=== PATIENT | male | born 1955 | race Caucasian/White ===

== ENCOUNTER 2023-11-25 18:39 | Emergency (ER) | payer OTHER, SELFPAY ==
--- NOTE | ~2023-11-25 | XR_ITS ---
XR chest 2V Ordering provider: Kolby Wise MD History: 68 years Male with . anterior chest pain . Comparison: October 05, 2010 FINDINGS: MEDIASTINUM: The cardiac silhouette is not enlarged. Postoperative changes in the mediastinum. LUNGS: No infiltrates, effusions or pneumothorax. OTHER: No free air under the diaphragm. Degenerative changes of the spine. IMPRESSION: No acute cardiopulmonary pathology. Reviewed, dictated and finalized at location A.
--- NOTE | ~2023-11-25 | CT_ITS ---
CTA chest PE protocol Ordering provider: Wendy Farris PA-C History: 68 years Male with . cough, sob, +dimer, influenza A . Comparison: None. Technique: CT angiogram chest was performed following timed intravenous injection of contrast. Thin s lice axial images and reformatted coronal images were obtained. Three dimensional reformatted images of the chest were also obtained using a [employer] workstation. . Automated exposure control and iterati ve reconstruction technique were employed. The dose-length product was 831.35 mGy-cm. 100 mL Omnipaqu e 350 was given IV. Findings: PULMONARY ARTERIES: No pulmonary embolus. VISUALIZED THORACIC INLET: Normal. MEDIASTINUM: Aorta/coronary arteries: Mild atheromatous disease. Heart/other: The heart is not enlarged. Lymph nodes: No mediastinal or hilar adenopathy. Postoperative changes in the mediastinum. LUNGS: No pulmonary nodules or masses. No infiltrates or effusions. No pneumothorax. VISUALIZED UPPER ABDOMEN: Sliding hiatus hernia. Otherwise, the visualized upper abdomen is normal. MUSCULOSKELETAL: Soft tissues: The superficial soft tissues are normal. Bones: Age appropriate degenerative changes of the spine. IMPRESSION: 1. No pulmonary embolism. 2. No acute cardiopulmonary pathology. 3. Small sliding hiatus hernia. Reviewed, dictated and finalized at location A.
[2023-11-25 18:41] VITALS: BP 133/70; PULSE 79; RESP 16; TEMP 38.3; O2SAT 95
--- NOTE | 2023-11-25 18:46 | ECG_ITS ---
Test Date: 2023-11-25 18:50:39 Measurements Intervals [place] Rate: 73 P: 23 [place]: 132 QRS: -29 QRSD: 103 T: 50 QT: 380 QTc: 420 Interpretive Statements SINUS RHYTHM INCOMPLETE RIGHT BUNDLE BRANCH BLOCK NONSPECIFIC ST-T WAVE ABNORMALITY- INF/LAT LEADS BASELINE ARTIFACT- I, II, III, AVR, AVL, AVF, V1-V2 BORDERLINE ECG No previous ECG available for comparison Electronically Signed On 11-25-2023 19:21:57 CDT by Jake Gay D.O.
[2023-11-25 19:09] LABS: Basophils Percent Auto 0.1 % (0.2-1.2); Eosinophils Percent Auto 0.3 % (0-4.4); Hematocrit 44.1 % (42.0-52.0); Hemoglobin 15.1 g/dL (14.0-18.0); Immature Granulocyte Absolute 0.04 K/mm3 (0.00-0.031); Immature Granulocyte Percent A 0.5 % (0-0.5); Lymphocytes Absolute Auto 1.24 K/mm3 (0.9-3.2); Lymphocytes Percent Auto 16.3 % (18.3-44.2); Mean Corpuscular HGB Conc 34.2 g/dl (32-36); Mean Corpuscular Hemoglobin 31.5 pg (26-34); Mean Corpuscular Volume 92.1 fl (80-100); Mean Platelet Volume 9.2 fl (7.4-10.4); Monocytes Absolute Auto 0.9 K/mm3 (0.1-0.6); Neutrophils Absolute Auto 5.4 K/mm3 (1.3-6.7); Neutrophils Percent Auto 70.8 % (45.5-73.1); Platelet Count Result 160 k/mm3 (150-375); Red Blood Count 4.79 M/mm3 (4.6-6.20); Red Cell Distribution Width 14.4 % (11.5-14.5); White Blood Count 7.6 K/mm3 (4.5-10.0)
[2023-11-25 19:20] LABS: INR 1.1; Prothrombin Time 14.2 Seconds (11.1-14.7)
[2023-11-25 19:21] LABS: Alanine Aminotransferase 29 U/L (6-50); Albumin Level 4.4 g/dL (3.5-5.1); Alkaline Phosphatase 91 U/L (38-126); Anion Gap 13 mmol/L (4-12); Aspartate Amino Transferase 38 U/L (17-59); Bilirubin,Total 0.8 mg/dL (0.2-1.3); Blood Urea Nitrogen 17 mg/dL (9-20); Calcium 8.6 mg/dL (8.4-10.2); Carbon Dioxide 20 mmol/L (22-30); Chloride 100 mmol/L (98-107); Estimated CRCL calculation 83 ml/min; Estimated Glomerular Filt Rate > 60; Glucose 103 mg/dL (65-110); Lipase 285 U/L (23-300); Partial Thromboplastin Time 33.1 Seconds (22.3-36.8); Potassium 3.5 mmol/L (3.4-5.0); Sodium 133 mmol/L (137-145)
[2023-11-25 19:33] LABS: Troponin I < 0.012 ng/mL (0.000-0.034)
[2023-11-25 22:26] VITALS: PULSE 66; RESP 15; O2SAT 96
[2023-11-25 22:28] VITALS: BP 118/78; PULSE 68; RESP 15; O2SAT 96
[2023-11-25 22:45] VITALS: BP 130/85; PULSE 60; RESP 10; TEMP 37.9; O2SAT 95
--- NOTE | 2023-11-25 22:47 | ED.CHESTPAIN ---
HPI - Chest Pain General Chief Complaint: Chest Pain Stated Complaint: chest pain Time Seen by Provider: 11/25/23 21:56 Source: patient Mode of arrival: ambulatory Limitations: no limitations History of Present Illness HPI narrative: Patient is a 68-year-old male, with PMH of CAD s/p triple bypass, who presents the ED with report of multiple complaints. Patient reports he has not felt well since Thursday. He developed chest pain sometime throughout the night on Thursday which has been intermittent since then. No aggravating factors. He is prescribed nitroglycerin and took 1 of these on Thursday. He also reports having weakness, fatigue, lethargy, cough, congestion, rhinorrhea, intermittent shortness of breath, chills, headaches. Denies known fever. Denies sick contacts. Denies lower extremity pain or swelling. Patient sees a adjuster piano action yearly with [facility]. Related Data Allergies Allergy/AdvReac Type Severity Reaction Status Date / Time codeine Allergy Verified 10/05/10 21:12 Review of Systems Review of Systems: All systems reviewed & are unremarkable except as noted in HPI. All systems reviewed & are unremarkable except as noted in HPI and below Exam Narrative: GENERAL: Mildly ill appearing, obese with BMI of 34.8, non-toxic, in no acute distress. HEAD: Normocephalic, atraumatic. RESPIRATORY: Airway patent, respirations nonlabored with occasional pursed lip breathing. Clear to auscultation bilaterally, no rales, rhonchi, wheezing. No significant focal lung sounds. CARDIOVASCULAR: Regular rate and rhythm without murmurs, rubs, or gallops. ABDOMINAL: Soft, nontender, nondistended. Normoactive BS. MUSCULOSKELETAL: Moves all extremities. No gross deformities. No lower extremity edema. No calf tenderness. SKIN: Warm, dry, normal color. NEURO: A&O X3. Speech clear. Cranial nerves II-XII grossly intact. Steady gait. No ataxic movements. PSYCHIATRIC: Appropriate mood and affect. Normal interaction. Course Vital Signs Vital signs: Vital Signs Temperature 100.9 F H 11/25/23 18:41 Pulse Rate 79 11/25/23 18:41 Respiratory Rate 16 11/25/23 18:41 Blood Pressure 133/70 11/25/23 18:41 Pulse Oximetry 95 11/25/23 18:41 Oxygen Delivery Room Air 11/25/23 18:41 Temperature 100.2 F H 11/25/23 22:45 Pulse Rate 52 L 11/26/23 01:58 Respiratory Rate 16 11/26/23 01:58 Blood Pressure 142/90 H 11/26/23 01:58 Pulse Oximetry 97 11/26/23 01:58 Oxygen Delivery Room Air 11/25/23 18:41 MDM - Chest Pain MDM Narrative Medical decision making narrative: Patient presented to ED with several day history of URI sx's, intermittent chest pain, cough, fatigue, weakness. Vital signs are stable upon arrival. Patient was noted to be febrile upon arrival and by the time of my evaluation. Given Tylenol in the ED. EKG is with nonspecific ST changes, no acute ST elevation or depression, right bundle-branch block. No records to compare to. Baseline troponin is undetectable. Chest x-ray is clear. BNP within normal limits. Cbc without leukocytosis or anemia. CMP fairly unremarkable. Possible mild dehydration with bicarb of 20, anion gap of 13. Patient given fluids in the ED. Normal LFTs and lipase. Influenza A testing resulted positive. This is consistent with clinical picture and reported symptoms. Patient has not been vaccinated for the flu. D-dimer resulted mildly elevated at 0.69. CTA of chest was obtained and without evidence of PE or other acute cardiopulmonary abnormality. Patient was updated on lab and imaging findings, diagnosis of influenza, otherwise reassuring workup. He was ambulated throughout the ED without hypoxia noted. Troponin has been flat X 3. Slight change but < 0.003 interval change. Patient has had ongoing pain since Thursday. Denies any current pain. I have low suspicion for ACS. Suspect musculoskeletal etiology related to Influenza. Discussed this with patient and advised to have clos
[2023-11-25 23:11] LABS: D Dimer 0.69 ug/mL (<0.48)
[2023-11-25 23:14] LABS: Influenza A QL RT-PCR Positive (Negative); Influenza B QL RT-PCR Negative (Negative); RSV RNA, RT-PCR Negative (Negative); SARS-CoV-2 RNA PCR Negative (Negative)
[2023-11-25] MEDS: ACETAMINOPHEN 500 MG TABLET 1000 MG PO (23:26)
[2023-11-25] MEDS: SODIUM CHLORIDE 0.9% IV 1,000 ML 999 ML IV CONT (23:27)
[2023-11-25 23:41] LABS: NT Pro B Type Natriuretic Pept 126 pg/mL (19.9-100)
[2023-11-25 23:45] LABS: Troponin I 0.012 ng/mL (0.000-0.034)
[2023-11-26 00:30] VITALS: PULSE 76
[2023-11-26 01:25] LABS: Troponin I 0.014 ng/mL (0.000-0.034)
[2023-11-26 01:58] VITALS: BP 142/90; PULSE 52; RESP 16; O2SAT 97
== END 2023-11-26 01:59 | disposition home or self-care (01) ==
PROVIDERS: Emergency Medicine; Emergency Provider Physician Assistant; PCP Family Medicine
DX: J10.1 Influenza due to other identified influenza virus with other respiratory manifestations (principal); I25.10 Atherosclerotic heart disease of native coronary artery without angina pectoris; Z20.822 Contact with and (suspected) exposure to COVID-19
CPT/HCPCS: 36415; 71046; 71275; 80053; 83690; 83880; 84484; 85025; 85380; 85610; 85730; 87637; 93005; 96360; 99284; A9270; J7030; Q9967

== ENCOUNTER 2024-03-08 12:51 | Emergency (ER) | payer OTHER, SELFPAY ==
--- NOTE | ~2024-03-08 | CT_ITS ---
CLINICAL INDICATION: Left lower quadrant pain COMPARISON: 10/05/2010 TECHNIQUE: Multiple contiguous axial images of the abdomen and pelvis were performed following the ad ministration of with 100 mL Omnipaque-350 intravenous contrast The dose-length product (DLP) was 1269.89 mGy-cm. Automated exposure control and iterative reconstruction technique were employed. FINDINGS/OBSERVATIONS: Visualized lower thorax: Trace left-sided pleural effusion. The heart is of normal size, without pericardial effusion. Liver: The liver enhances homogeneously and is not enlarged. Gallbladder and biliary system: The gallbladder is surgically absent. Pancreas: The pancreas enhances homogeneously without ductal dilatation. Spleen: The spleen enhances homogeneously and is not enlarged. Kidneys: Left-sided hydronephrosis extending to the proximal left ureter where a 4.8 mm stone is identified. Significant perinephric stranding is detected. Global enlargement of the left kidney is identified. Multiple subcentimeter foci of decreased attenuation within the bilateral kidneys, too small to qasim cterize but statistically representing cysts. A 3 mm nonobstructing stone is identified within the upper pole of the right kidney. Adrenal glands: Unremarkable. Gastrointestinal tract: Colonic diverticulosis without surrounding inflammatory change. The rectum is distended with stool. Appendix: The appendix is not definitively visualized. However, no pericecal inflammatory change is identified suggest the presence of acute appendicitis. Vasculature: Calcified atherosclerotic disease. No aneurysmal dilatation or significant stenosis. Lymph nodes: No pathologically enlarged or morphologically suspicious lymph nodes within the retroperitoneum or at the root of the mesentery. Pelvic structures: The bladder is only minimally distended, and otherwise unremarkable. The prostate gland is not enlarged. Body wall and musculoskeletal: Small fat-containing umbilical hernia. Significant degenerative disease within the lumbosacral spine, with osteophyte formation, disc space narrowing, endplate changes and vacuum phenomena. Facet hypertrophy is also noted, as is grade 1 anterolisthesis of L4 onto L5. IMPRESSION: Left-sided hydronephrosis secondary to a 5 mm stone within the proximal left ureter. Reviewed, dictated and finalized at location A. ATIONS COORDINATOR IMPRESSION: Left-sided hydronephrosis secondary to a 5 mm stone within the proximal left ur eter.
[2024-03-08 12:52] VITALS: BP 173/114; PULSE 57; RESP 16; TEMP 36.4; O2SAT 96
--- NOTE | 2024-03-08 13:13 | ED_ITS ---
HPI - Abdominal Pain General Chief Complaint: Abdominal Pain Stated Complaint: lower left abd pain Time Seen by Provider: 03/08/24 13:03 Source: patient Mode of arrival: ambulatory Limitations: no limitations History of Present Illness HPI narrative: This is a 69-year-old male who presents to the ED for chief complaint of left lower abdominal pain that started this morning after waking up. Patient reports pain radiates superiorly at times. No specific exacerbating or alleviating factors. He does report a normal bowel movement this morning. States that he has been nauseous and had 1 episode of vomiting after trying to drink water this morning. Denies diarrhea or GI bleeding symptoms. States that he has not had pain like this in the past. He has been told that he has diverticulosis from previous colonoscopy. Related Data Allergies Allergy/AdvReac Type Severity Reaction Status Date / Time codeine Allergy Unknown Verified 03/08/24 13:33 morphine Allergy Other Verified 03/08/24 13:33 Review of Systems 2 Review of Systems: All systems as dictated in HPI Exam 2 Narrative: GENERAL: Well-appearing, well-nourished, and in no acute distress. HEAD: Normocephalic, atraumatic. EYES: PERRLA and EOMI. ENT: Nares clear, no rhinorrhea or epistaxis. Mucous membranes moist. Oropharynx without tonsillar hypertrophy exudate or other lesions. NECK: Supple. No adenopathy or masses. CHEST: No respiratory distress. Clear to auscultation. No wheezes rales or rhonchi HEART: Regular rate and rhythm. No murmur heard. Normal peripheral pulses. ABDOMEN: Focal tenderness to the left lower quadrant. Otherwise nontender, nondistended, normal active bowel sounds. Negative flank tenderness bilaterally. MSK: Normal range of motion. No edema. SKIN: Warm, dry, no rash. NEURO: Alert and oriented x4. No focal deficits. PSYCH: Normal mood and affect. Course Vital Signs Vital signs: Vital Signs Temperature 97.6 F 03/08/24 12:52 Pulse Rate 57 L 03/08/24 12:52 Respiratory Rate 16 03/08/24 12:52 Blood Pressure 173/114 H 03/08/24 12:52 Pulse Oximetry 96 03/08/24 12:52 Oxygen Delivery Room Air 03/08/24 12:52 Temperature 97.6 F 03/08/24 12:52 Pulse Rate 57 L 03/08/24 12:52 Respiratory Rate 16 03/08/24 12:52 Blood Pressure 173/114 H 03/08/24 12:52 Pulse Oximetry 96 03/08/24 12:52 Oxygen Delivery Room Air 03/08/24 12:52 MDM - Abdominal Pain MDM Narrative Medical decision making narrative: This is a 69-year-old male who presents to the ED for chief complaint of left- sided abdominal pain beginning earlier today. Vitals show elevated blood pressure but otherwise normal. Exam remarkable for the above. Lab work shows elevated white count of 15.8. CMP is unremarkable. Urinalysis remarkable for trace ketones and 21-[address] abdomen and pelvis with contrast: IMPRESSION: Left-sided hydronephrosis secondary to a 5 mm stone within the proximal left ureter. Feel that the white count is most likely due to acute phase reaction with vomiting today,/acute process with nephrolithiasis. No fever or evidence of UTI to indicate associated infection with this stone today. He is feeling better after Toradol. Rx for Zofran, Flomax, tramadol given. Urology referral given as well. Patient will be discharged in stable condition. Supportive measures discussed and return precautions given. Patient is understanding and agreeable with plan for discharge with PCP follow-up. Lab Data 03/08/24 13:36 03/08/24 13:36 Labs: Lab Results 03/08/24 03/08/24 Range/Units 13:36 13:49 WBC 15.8 H (4.5-10.0) K/mm3 RBC 5.08 (4.6-6.20) M/mm3 Hgb 15.9 (14.0-18.0) g/dL Hct 46.5 (42.0-52.0) % MCV 91.5 (80-100) fl MCH 31.3 (26-34) pg MCHC 34.2 (32-36) g/dl RDW 13.5 (11.5-14.5) % Plt Count 233 (150-375) k/mm3 MPV 8.9 (7.4-10.4) fl Immature Gran % (Auto) 0.6 H (0-0.5) % Neut % (Auto) 86.3 H (45.5-73.1) % Lymph % (Auto) 7.2 L (18.3-44.2) % [place] % (Auto) 5.5 (2.6-8.5) % Eos % (Auto) 0.0 (0-4.4) % Baso % (Auto) 0.4 (0.2-1.2) % Lymph # (Auto) 1.14 (0.9-3.2) K/mm3 [place] # (Auto) 0.9 H (0.1-0.6) K/mm3 Eos # (Auto) 0.0 (0-0.3) K/mm3 Baso # (Auto) 0.1 (0.0-0.1) K/mm3 Abs Immat Gran (auto) 0.09 H (0.00-0.031) K/mm3 Absolute Neuts (auto) 13.6 H (1.3-6.7) K/mm3 Absolute Nucleated RBC 0.000 (0.0-0.012) K/mm3 Nucleated RBC % 0.0 (0.0-0.2) % Sodium 137 (137-145) mmol/L Potassium 4.0 (3.4-5.0) mmol/L Chloride 108 H (98-107) mmol/L Carbon Dioxide 23 (22-30) mmol/L Anion Gap 6 (4-12) mmol/L BUN 17 (9-20) mg/dL Creatinine 0.80 (0.7-1.3) mg/dL Estim Creat Clear Calc 89 ml/min Estimated GFR > 60 (59 - ) Glucose 126 H (65-110) mg/dL Calcium 9.3 (8.4-10.2) mg/dL Total Bilirubin 1.0 (0.2-1.3) mg/dL AST 24 (17-59) U/L ALT 20 (6-50) U/L Alkaline Phosphatase 94 (38-126) U/L Total Protein 8.0 (6.3-8.2) g/dL Albumin 4.5 (3.5-5.1) g/dL Lipase 55 (23-300) U/L Urine Color Yellow (Yellow) Urine Appearance Clear (Clear) Urine pH 7.5 (5.0-9.0) Ur Specific [place] 1.014 (1.001-1.035) Urine Protein 1+ H (Negative) mg/dL Urine Glucose (UA) Trace H (Negative) mg/dL Urine Ketones Trace H (Negative) mg/dL Ur Blood (Man) 1+ H (Negative) Urine Nitrate Negative (Negative) Urine Bilirubin Negative (Negative) Urine Urobilinogen 0.2 (<2.0) mg/dL Leukocyte Esterase Rfl Negative (Negative) KIT/UL Urine RBC 21-50 H (0-2) /hpf Urine WBC 0-5 (0-3) /hpf Ur Squamous Epith Cells None seen (Few) /hpf Urine Bacteria None seen /hpf Urine Casts 0-2 Imaging Data Radiologist's impression: ITS Impressions Abdomen/Pelvis CT 03/08/24 14:16 IMPRESSION: Left-sided hydronephrosis secondary to a 5 mm stone within the proximal left ureter. Discharge Plan Discharge Clinical Impression: Left ureteral stone Patient Disposition: Home, Self-Care Condition: Stable Instructions: Antibiotic Form Additional Instructions: Exam and imaging today show 5 mm kidney stone on the left side. Please follow- up with urology closely on this issue. Take ibuprofen 600 mg every 6 hours as needed for pain control. You could also take Tylenol for pain and fevers. Please take Zofran as needed for nausea. Continue taking your Flomax as prescribed. A new prescription has been sent in case you need this. Tramadol has been prescribed for breakthrough pain. Return to the ER for uncontrollable pain, vomiting or any fevers. Patient Language: Cymraes Prescriptions: New tamsulosin [Flomax] 0.4 mg capsule 0.4 mg PO DAILY Qty: 10 0RF ondansetron 4 mg tablet,disintegrating 4 mg PO Q8H PRN (Reason: nausea and vomiting) Qty: 10 0RF tramadol 25 mg tablet 25 mg PO QID PRN (Reason: pain) Qty: 14 0RF No Action benzonatate 200 mg capsule 200 mg PO TID PRN (Reason: cough) Qty: 15 0RF ondansetron 4 mg tablet,disintegrating 4 mg PO Q8H PRN (Reason: nausea and vomiting) Qty: 10 0RF Follow-up/Referrals: Salma,Osman Walters MD [Non-Staff] - Peter Hays MD [Physician] - Time of Disposition: 15:00
[2024-03-08] MEDS: SODIUM CHLORIDE 0.9% IV 1,000 ML 999 ML IV CONT (13:34)
[2024-03-08] MEDS: ONDANSETRON INJ 4 MG/2 ML VIAL IV PUSH (13:34)
[2024-03-08 13:42] LABS: Basophils Absolute Auto 0.1 K/mm3 (0.0-0.1); Basophils Percent Auto 0.4 % (0.2-1.2); Hematocrit 46.5 % (42.0-52.0); Hemoglobin 15.9 g/dL (14.0-18.0); Immature Granulocyte Absolute 0.09 K/mm3 (0.00-0.031); Immature Granulocyte Percent A 0.6 % (0-0.5); Lymphocytes Absolute Auto 1.14 K/mm3 (0.9-3.2); Lymphocytes Percent Auto 7.2 % (18.3-44.2); Mean Corpuscular HGB Conc 34.2 g/dl (32-36); Mean Corpuscular Hemoglobin 31.3 pg (26-34); Mean Corpuscular Volume 91.5 fl (80-100); Mean Platelet Volume 8.9 fl (7.4-10.4); Monocytes Absolute Auto 0.9 K/mm3 (0.1-0.6); Monocytes Percent Auto 5.5 % (2.6-8.5); Neutrophils Absolute Auto 13.6 K/mm3 (1.3-6.7); Neutrophils Percent Auto 86.3 % (45.5-73.1); Platelet Count Result 233 k/mm3 (150-375); Red Blood Count 5.08 M/mm3 (4.6-6.20); Red Cell Distribution Width 13.5 % (11.5-14.5); White Blood Count 15.8 K/mm3 (4.5-10.0)
[2024-03-08] MEDS: KETOROLAC 30 MG/ML VIAL (*BKC) 15 MG IV PUSH (13:46)
[2024-03-08 13:54] LABS: Alanine Aminotransferase 20 U/L (6-50); Albumin Level 4.5 g/dL (3.5-5.1); Alkaline Phosphatase 94 U/L (38-126); Anion Gap 6 mmol/L (4-12); Aspartate Amino Transferase 24 U/L (17-59); Blood Urea Nitrogen 17 mg/dL (9-20); Calcium 9.3 mg/dL (8.4-10.2); Carbon Dioxide 23 mmol/L (22-30); Chloride 108 mmol/L (98-107); Estimated CRCL calculation 89 ml/min; Estimated Glomerular Filt Rate > 60; Glucose 126 mg/dL (65-110); Lipase 55 U/L (23-300); Sodium 137 mmol/L (137-145)
[2024-03-08 14:01] LABS: Add Urine Microscopic? YES; Appearance Urine Clear (Clear); Bacteria Urine None Seen /hpf; Bilirubin Urine Negative (Negative); Blood Urine 1+ (Negative); Color Urine Yellow (Yellow); Glucose Urine UA Trace mg/dL (Negative); Ketones Urine Trace mg/dL (Negative); Leukocyte Esterase Ur Negative LEU/UL (Negative); Nitrate Urine Negative (Negative); Non Pathogenic Casts 0-2; Protein Urine 1+ mg/dL (Negative); RBC Urine 21-50 /hpf (0-2); Specific Grav Ur 1.014 (1.001-1.035); Squamous Epithelial Cell Urine None Seen /hpf (Few); Urobilinogen Urine 0.2 mg/dL (<2.0); WBC Urine 0-5 /hpf (0-3); pH Urine 7.5 (5.0-9.0)
--- OUTSIDE RECORDS SUMMARY | 2024-03-16 00:11 | XMS_ITS | Encounter Summary ---
Author Organization [facility] Address [address] [place] [address] Phone Care Team Providers Care Agricultural Chemist Name Role Phone Dave Mchugh MD Unavailable [phone] Yulisa Gray NP Unavailable Osman Marsh MD Primary Care Provider [phone] Pedro Cedeno MD Unavailable [phone] Encounter Details Date Type Department Care Team (Late st Contact Info) Description 04/30/2022 Telephone [facility] Cardiology [address]th [place] [address] [place] [address] Dave Mchugh MD [address] [place] [address] Social History Tobacco Use Types Packs/Day Years Used Date Smoking Tobacco: Former Cigarettes 2.3 54.7 0 03/16/1967 - 12/14/2021 Smokeless Tobacco: Never Comments: Started smoking at 12-13 years old Quit smoking at 2013 for 5 years and then restarted when his got sick in Alcohol Use Standard Drinks/Week Comments Not Currently 0 (1 standard drink = 0.6 oz pur e alcohol) AUDIT-C Answer Date Recorded Q1: How often do you have a drink containing alc ohol? Monthly or less 04/21/2022 Q2: How many drinks containi ng alcohol do you have on a typical day when you are drinking? 1 or 2 04/21/2022 Q3: How often do you have si x or more drinks on one occasion? 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 Gender Identity Not on file Sexual Orientation Straight 04/21/2022 12 :23 PM FOOD ORDER DELIVERY RUNNER Occupation Industry Job Start Date Job End Date Retired Not on file Not on file Not on file documented as of this encounter Ordered Prescriptions Prescription Sig Dispense Quantity Refills Last Filled Start Date End Date isosorbide mononitrate ER (IMDUR) 30 mg 24 hr tabletIndications: prevention of anginal pain in coronary artery disease Take 1 tablet (30 mg total) by mouth every morning 90 tablet 2 05/02/2022 4 lisinopriL (PRINIVIL,ZESTRIL) 5 mg tabletIndications: hypertension Take 1 tablet (5 mg total) by mouth every morning 90 tablet 2 05/02/2022 4 amLODIPine (NORVASC) 2.5 mg tabletIndications: hypertension Take 1 tablet (2.5 mg total) by mouth every morning 90 tablet 2 05/02/2022 4 documented in this encounter Miscellaneous Notes * Addendum Note - Joslny Downs - 05/02/2022 8:21 AM CSTAddended by: JOSLYN DOWNS on: 05/02/2022 08:21 AM Modules accepted: Orders ORDER DELIVERY RUNNER * Addendum Note - Joslyn Downs - 05/01/2022 4:34 PM CSTAddended by: JOSLYN DOWNS on: 05/01/2022 04:34 PM Modules accepted: Orders ORDER DELIVERY RUNNER * Telephone Encounter - Lauren Lima - 04/30/2022 3:00 PM CST Images from the original note were not included. See 3 RX request ORDER DELIVERY RUNNER documented in this encounter Plan of Treatment Not on file documented as of this encounter Goals Goal Patient Goal Type Associated Problems Recent Progress Patient-Stated? Author CCM Chronic Pain Care Plan Chronic Care Management Rita Kamara, RN Note: Problem: Chronic Pain Goals: 1. Minimize further functional decline 2. Maximize quality of life 3. Control pain Strategies: - Activity/exercise program recommendation - Conservative stepwise pain medicine strategy with multi-disciplinary approach - Recommend healthy lifestyle strategies and compensatory methods as needed documented as of this encounter Visit Diagnoses Not on filedocumented in this encounter Discontinued Medications Medication Sig Discontinue Reason Start Date End Da te amLODIPine (NORVASC) 2.5 mg tablet Take 1 tablet (2.5 mg total) by mouth daily Reorder 01/29/2022 05/01/2022 isosorbide mononitrate ER (IMDUR) 30 mg 24 hr tablet Take 1 tablet (30 mg total) by mouth daily Reorder 01/29/2022 05/02/2022 lisinopriL (PRINIVIL,ZESTRIL) 5 mg tablet Take 1 tablet (5 mg total) by mouth daily Reorder 01/29/2022 05/01/2022 documented as of this encounter Care Teams Agricultural Chemist Relationship Specialty Start Date End Date Osman Marsh MD [address] [address] PCP - General Family Medicine 04/28/22 Dave Mchugh MD Referring Physician Cardiology 03/18/22 Yulisa Gray NP Nurse Practitioner Family Medicine 03/21/22 Pedro Cedeno MD [address] [facility] [address] [place] [address] Consulting Physician Orthopedic Surgery 04/30/22 documented as of this encounter
== END 2024-03-08 15:20 | disposition home or self-care (01) ==
PROVIDERS: Emergency Provider Physician Assistant; PCP Family Medicine
DX: N20.1 Calculus of ureter (principal)
CPT/HCPCS: 36415; 74177; 80053; 81001; 83690; 85025; 96361; 96374; 96375; 99284; J1885; J2405; J7030; Q9967

== ENCOUNTER 2024-04-13 10:56 | Emergency (ER) | payer OTHER, SELFPAY ==
--- NOTE | ~2024-04-13 | CT_ITS ---
EXAMINATION: CT abdomen pelvis wo con DATE: 04/13/2024 13:53 INDICATION: Concern for left kidney stone TECHNIQUE: Computed tomography (CT) of the abdomen and pelvis was performed without intravenous contr ast. Automated exposure control and iterative reconstruction technique were employed. The dose-length product was 549.09 mGy-cm. COMPARISON: 03/08/2024 FINDINGS: There are scattered discoid atelectasis in the bilateral lower lungs. Heart size is normal. Atheroscl erotic coronary artery calcifications. No pericardial or pleural effusion. Cholecystectomy clips the gallbladder fossa. Liver, spleen, pancreas and bilateral adrenal glands are normal. There are couple nonobstructing right renal stones, the larger measuring 4 mm at the lower pole the right kidney. 5 x 3 mm obstructing stone at the proximal left ureter with mild left hydronephrosis and moderate left pe rinephric stranding. Bladder is normal. There is diffuse severe colonic diverticulosis without adjace nt inflammatory change to suggest diverticulitis. Small bowel and appendix are normal. No free intra peritoneal gas or fluid. No pathologically enlarged abdominal or pelvic lymphadenopathy. Moderate to severe lumbar and mild to moderate lower thoracic spondylosis. Chronic mild likely physiologic anteri or wedging at T11 and T12. IMPRESSION: 1. Obstructing 5 mm proximal left ureteral stone with mild left hydronephrosis and moderate perinephr ic stranding. 2. Extensive diverticulosis. Reviewed, dictated and finalized at location B. RINARY ASSISTANT IMPRESSION: 1. Obstructing 5 mm proximal left ureteral stone with mild left hydronephrosis and moderate perinephric stranding. 2. Extensive diverticulosis.
--- NOTE | ~2024-04-13 | XR_ITS ---
EXAMINATION: XR chest 2V 04/13/2024 12:45 INDICATION: Chest pain PROCEDURE: 2 view chest COMPARISON: 11/25/2023 FINDINGS: Status post median sternotomy for CABG. Bibasilar atelectasis. No focal pneumonia, edema ef fusion. No pneumothorax. Heart size normal.Chronic deformity of the right clavicle. Surgical changes right humeral head. Mild thoracic spondylosis with accentuated kyphosis. IMPRESSION: 1: Bibasilar atelectasis. Reviewed, dictated and finalized at location A. MACHINE OPERATOR IMPRESSION: 1: Bibasilar atelectasis.
--- NOTE | 2024-04-13 10:58 | ECG_ITS ---
Test Date: 2024-04-13 11:05:34 Measurements Intervals [place] Rate: 66 P: 19 ID: [id number] QRS: -11 QRSD: 122 T: -1 QT: 436 QTc: 459 Interpretive Statements SINUS RHYTHM WITH FREQUENT VENTRICULAR PREMATURE COMPLEXES MODERATE INTRAVENTRICULAR CONDUCTION DELAY [110+ ms QRS DURATION] ABNORMAL RHYTHM ECG Compared to ECG 11/25/2023 18:50:39 Ventricular premature complex(es) now present Electronically Signed On 04-13-2024 16:07:21 JUNIOR QA ANALYST by Derek Shirley M.D.
--- NOTE | 2024-04-13 11:12 | ECG_ITS ---
Test Date: 2024-04-13 11:10:06 Measurements Intervals [place] Rate: 55 P: 21 IN: 157 QRS: -17 QRSD: 116 T: -11 QT: 462 QTc: 446 Interpretive Statements SINUS BRADYCARDIA MODERATE INTRAVENTRICULAR CONDUCTION DELAY [110+ ms QRS DURATION] Compared to ECG 04/13/2024 11:05:34 Ventricular premature complex(es) no longer present Electronically Signed On 04-13-2024 16:07:44 CONSTRUCTION MATERIALS TESTER by Derek Shirley M.D.
[2024-04-13 11:28] VITALS: BP 180/85; PULSE 54; RESP 20; TEMP 36.9; O2SAT 95
[2024-04-13 11:32] LABS: Basophils Absolute Auto 0.1 K/mm3 (0.0-0.1); Basophils Percent Auto 0.6 % (0.2-1.2); Eosinophils Absolute Auto 0.1 K/mm3 (0-0.3); Eosinophils Percent Auto 0.8 % (0-4.4); Hematocrit 45.7 % (42.0-52.0); Hemoglobin 15.9 g/dL (14.0-18.0); Immature Granulocyte Absolute 0.06 K/mm3 (0.00-0.031); Immature Granulocyte Percent A 0.5 % (0-0.5); Lymphocytes Absolute Auto 1.69 K/mm3 (0.9-3.2); Lymphocytes Percent Auto 13.3 % (18.3-44.2); Mean Corpuscular HGB Conc 34.8 g/dl (32-36); Mean Corpuscular Hemoglobin 31.9 pg (26-34); Mean Corpuscular Volume 91.8 fl (80-100); Mean Platelet Volume 8.9 fl (7.4-10.4); Monocytes Percent Auto 7.6 % (2.6-8.5); Neutrophils Absolute Auto 9.8 K/mm3 (1.3-6.7); Neutrophils Percent Auto 77.2 % (45.5-73.1); Platelet Count Result 235 k/mm3 (150-375); Red Blood Count 4.98 M/mm3 (4.6-6.20); Red Cell Distribution Width 13.1 % (11.5-14.5); White Blood Count 12.7 K/mm3 (4.5-10.0)
[2024-04-13 11:42] LABS: Alanine Aminotransferase 16 U/L (6-50); Albumin Level 4.5 g/dL (3.5-5.1); Alkaline Phosphatase 87 U/L (38-126); Anion Gap 14 mmol/L (4-12); Aspartate Amino Transferase 20 U/L (17-59); Bilirubin,Total 0.9 mg/dL (0.2-1.3); Blood Urea Nitrogen 22 mg/dL (9-20); Calcium 8.9 mg/dL (8.4-10.2); Carbon Dioxide 19 mmol/L (22-30); Chloride 106 mmol/L (98-107); Estimated CRCL calculation 80 ml/min; Estimated Glomerular Filt Rate > 60; Glucose 137 mg/dL (65-110); Lipase 106 U/L (23-300); Sodium 139 mmol/L (137-145)
[2024-04-13 11:52] LABS: Prothrombin Time 13.6 Seconds (11.1-14.7)
[2024-04-13 11:53] LABS: Partial Thromboplastin Time 25.8 Seconds (22.3-36.8); Troponin I < 0.012 ng/mL (0.000-0.034)
--- NOTE | 2024-04-13 13:41 | ED.CHESTPAIN ---
HPI - Chest Pain General Chief Complaint: Chest Pain <Rehana Mcknight PA-C - Last Filed: 04/13/24 13:42> Stated Complaint: kidney stone <Rehana Mcknight PA-C - Last Filed: 04/13/24 13:42> Time Seen by Provider: 04/13/24 16:42 <Rehana Mcknight PA-C - Last Filed: 04/13/24 13:42> Focused HPI: 69-year-old male with a history of CAD, CABG several years ago, kidney stones presents to the emergency department for chest pain concerns for kidney stones. Patient states today around 8:00 a.m. he began having pain in the left side of his abdomen which is normally what happens when he gets a kidney stone. Denies flank pain. Reports associated nausea and emesis. States he has not urinated today but when he urinated last night he had no hematuria or dysuria. States earlier today while he was rolling around in pain from the kidney stone he began having pain to the left side of his chest. States it is stabbing in nature. No aggravating or alleviating factors. No fevers. GENERAL: Well-appearing, well-nourished, and in no acute distress. HEAD: Normocephalic, atraumatic. CHEST: Clear to auscultation. ?No respiratory distress. ABD: Tenderness of the left upper quadrant no rebound, guarding rigidity. No CVA tenderness HEART: Regular rate and rhythm.? NEURO: ?Alert and oriented x3. Patient screened in triage and initial orders placed.? ?Additional care and disposition to be based upon?diagnostic testing and treatment. <Rehana Mcknight PA-C - Last Filed: 04/13/24 13:42> Related Data Allergies/Adverse Reactions: Allergies Allergy/AdvReac Type Severity Reaction Status Date / Time codeine Allergy Unknown Verified 03/08/24 13:33 morphine Allergy Other Verified 03/08/24 13:33 <Rehana Mcknight PA-C - Last Filed: 04/13/24 13:42> Exam Narrative: APPEARANCE: No apparent distress. Head: atraumatic. EYES: EOMI, NOSE: Atraumatic NECK: Trachea midline RESPIRATORY: No increased rate of breathing clear to auscultation CARDIOVASCULAR: RRR, soft nontender no guarding rebound ABDOMINAL: Non-distended no CVA tenderness MUSCULOSKELETAl: No obvious deformities NEURO: Alert. Moving 4/4 extremities SKIN:: Warm, dry. Normal color PSYCHIATRIC: Normal affect <Ricardo Waters MD - Last Filed: 04/13/24 18:35> Course Vital Signs Vital signs: Vital Signs Temperature 98.5 F 04/13/24 11:28 Pulse Rate 54 L 04/13/24 11:28 Respiratory Rate 20 04/13/24 11:28 Blood Pressure 180/85 H 04/13/24 11:28 Pulse Oximetry 95 04/13/24 11:28 Oxygen Delivery Room Air 04/13/24 11:28 Temperature 98.5 F 04/13/24 11:28 Pulse Rate 73 04/13/24 16:08 Respiratory Rate 20 04/13/24 11:28 Blood Pressure 112/86 04/13/24 16:06 Pulse Oximetry 95 04/13/24 16:06 Oxygen Delivery Room Air 04/13/24 16:05 <Rehana Mcknight PA-C - Last Filed: 04/13/24 13:42> Vital Signs Temperature 98.5 F 04/13/24 11:28 Pulse Rate 54 L 04/13/24 11:28 Respiratory Rate 20 04/13/24 11:28 Blood Pressure 180/85 H 04/13/24 11:28 Pulse Oximetry 95 04/13/24 11:28 Oxygen Delivery Room Air 04/13/24 11:28 Temperature 98.5 F 04/13/24 11:28 Pulse Rate 73 04/13/24 16:08 Respiratory Rate 20 04/13/24 11:28 Blood Pressure 112/86 04/13/24 16:06 Pulse Oximetry 95 04/13/24 16:06 Oxygen Delivery Room Air 04/13/24 16:05 <Ricardo Waters MD - Last Filed: 04/13/24 18:35> MDM - Chest Pain MDM Narrative Medical decision making narrative: -Course: This 69-year-old male presenting with left-sided flank pain. CT showed a 5 mm kidney stone. Patient's pain was controlled in the ED. No signs of infection. Given symptomatic treatment and discharged with urology follow-up. Patient had some sharp chest pain on the while driving to the ED. Pain resolved without intervention. Patient is resting comfortably in bed with no symptoms and stable vital signs. X-ray EKG and troponins x2were negative. Pain is atypical and noncardiac. Follow-up with cardiology. -DDX includes but is not limited to: Kidney stone, muscle strain, pyelonephritis, ACS pneumonia pneumothorax PE -Co-morbidities complicating care: CAD Independent EKG interpretation: Rhythm [sinus], Rate [55], [place] -[normal], [place] -[normal], QRS [narrow], QTC [normal], T waves -[negative for concerning inversions], ST Segments - [Negative for concerning elevations] Final interpretations: [Normal Sinus Rhythm] <Ricardo Waters MD - Last Filed: 04/13/24 18:35> Lab Data Result diagrams: 04/13/24 11:19 04/13/24 11:19 <Rehana Mcknight PA-C - Last Filed: 04/13/24 13:42> Labs: Lab Results 04/13/24 04/13/24 04/13/24 Range/Units 11:19 14:29 17:12 WBC 12.7 H (4.5-10.0) K/mm3 RBC 4.98 (4.6-6.20) M/mm3 Hgb 15.9 (14.0-18.0) g/dL Hct 45.7 (42.0-52.0) % MCV 91.8 (80-100) fl MCH 31.9 (26-34) pg MCHC 34.8 (32-36) g/dl RDW 13.1 (11.5-14.5) % Plt Count 235 (150-375) k/mm3 MPV 8.9 (7.4-10.4) fl Immature Gran % (Auto) 0.5 (0-0.5) % Neut % (Auto) 77.2 H (45.5-73.1) % Lymph % (Auto) 13.3 L (18.3-44.2) % [place] % (Auto) 7.6 (2.6-8.5) % Eos % (Auto) 0.8 (0-4.4) % Baso % (Auto) 0.6 (0.2-1.2) % Lymph # (Auto) 1.69 (0.9-3.2) K/mm3 [place] # (Auto) 1.0 H (0.1-0.6) K/mm3 Eos # (Auto) 0.1 (0-0.3) K/mm3 Baso # (Auto) 0.1 (0.0-0.1) K/mm3 Abs Immat Gran (auto) 0.06 H (0.00-0.031) K/mm3 Absolute Neuts (auto) 9.8 H (1.3-6.7) K/mm3 Absolute Nucleated RBC 0.000 (0.0-0.012) K/mm3 Nucleated RBC % 0.0 (0.0-0.2) % PT 13.6 (11.1-14.7) Seconds INR 1.0 APTT 25.8 (22.3-36.8) Seconds Sodium 139 (137-145) mmol/L Potassium 4.0 (3.4-5.0) mmol/L Chloride 106 (98-107) mmol/L Carbon Dioxide 19 L (22-30) mmol/L Anion Gap 14 H (4-12) mmol/L BUN 22 H (9-20) mg/dL Creatinine 0.91 (0.7-1.3) mg/dL Estim Creat Clear Calc 80 ml/min Estimated GFR > 60 (59 - ) Glucose 137 H (65-110) mg/dL Calcium 8.9 (8.4-10.2) mg/dL Total Bilirubin 0.9 (0.2-1.3) mg/dL AST 20 (17-59) U/L ALT 16 (6-50) U/L Alkaline Phosphatase 87 (38-126) U/L Troponin I < 0.012 < 0.012 (0.000-0.034) ng/mL Total Protein 8.0 (6.3-8.2) g/dL Albumin 4.5 (3.5-5.1) g/dL Lipase 106 (23-300) U/L Urine Color Yellow (Yellow) Urine Appearance Clear (Clear) Urine pH 6.5 (5.0-9.0) Ur Specific [place] 1.017 (1.001-1.035) Urine Protein 1+ H (Negative) mg/dL Urine Glucose (UA) Negative (Negative) mg/dL Urine Ketones Trace H (Negative) mg/dL Ur Blood (Man) 2+ H (Negative) Urine Nitrate Negative (Negative) Urine Bilirubin Negative (Negative) Urine Urobilinogen 1.0 (<2.0) mg/dL Leukocyte Esterase Rfl Negative (Negative) KIT/UL Urine RBC 11-20 H (0-2) /hpf Urine WBC 0-5 (0-3) /hpf Ur Squamous Epith Cells None seen (Few) /hpf Urine Bacteria None seen /hpf Urine Casts 3-5 04/13/24 Range/Units 17:31 WBC (4.5-10.0) K/mm3 RBC (4.6-6.20) M/mm3 Hgb (14.0-18.0) g/dL Hct (42.0-52.0) % MCV (80-100) fl MCH (26-34) pg MCHC (32-36) g/dl RDW (11.5-14.5) % Plt Count (150-375) k/mm3 MPV (7.4-10.4) fl Immature Gran % (Auto) (0-0.5) % Neut % (Auto) (45.5-73.1) % Lymph % (Auto) (18.3-44.2) % [place] % (Auto) (2.6-8.5) % Eos % (Auto) (0-4.4) % Baso % (Auto) (0.2-1.2) % Lymph # (Auto) (0.9-3.2) K/mm3 [place] # (Auto) (0.1-0.6) K/mm3 Eos # (Auto) (0-0.3) K/mm3 Baso # (Auto) (0.0-0.1) K/mm3 Abs Immat Gran (auto) (0.00-0.031) K/mm3 Absolute Neuts (auto) (1.3-6.7) K/mm3 Absolute Nucleated RBC (0.0-0.012) K/mm3 Nucleated RBC % (0.0-0.2) % PT (11.1-14.7) Seconds INR APTT (22.3-36.8) Seconds Sodium (137-145) mmol/L Potassium (3.4-5.0) mmol/L Chloride (98-107) mmol/L Carbon Dioxide (22-30) mmol/L Anion Gap (4-12) mmol/L BUN (9-20) mg/dL Creatinine (0.7-1.3) mg/dL Estim Creat Clear Calc ml/min Estimated GFR (59 - ) Glucose (65-110) mg/dL Calcium (8.4-10.2) mg/dL Total Bilirubin (0.2-1.3) mg/dL AST (17-59) U/L ALT (6-50) U/L Alkaline Phosphatase (38-126) U/L Troponin I < 0.012 (0.000-0.034) ng/mL Total Protein (6.3-8.2) g/dL Albumin (3.5-5.1) g/dL Lipase (23-300) U/L Urine Color (Yellow) Urine Appearance (Clear) Urine pH (5.0-9.0) Ur Specific [place] (1.001-1.035) Urine Protein (Negative) mg/dL Urine Glucose (UA) (Negative) mg/dL Urine Ketones (Negative) mg/dL Ur Blood (Man) (Negative) Urine Nitrate (Negative) Urine Bilirubin (Negative) Urine Urobilinogen (<2.0) mg/dL Leukocyte Esterase Rfl (Negative) KIT/UL Urine RBC (0-2) /hpf Urine WBC (0-3) /hpf Ur Squamous Epith Cells (Few) /hpf Urine Bacteria /hpf Urine Casts <Rehana Mcknight PA-C - Last Filed: 04/13/24 13:42> Lab Results 04/13/24 04/13/24 04/13/24 Range/Units 11:19 14:29 17:12 WBC 12.7 H (4.5-10.0) K/mm3 RBC 4.98 (4.6-6.20) M/mm3 Hgb 15.9 (14.0-18.0) g/dL Hct 45.7 (42.0-52.0) % MCV 91.8 (80-100) fl MCH 31.9 (26-34) pg MCHC 34.8 (32-36) g/dl RDW 13.1 (11.5-14.5) % Plt Count 235 (150-375) k/mm3 MPV 8.9 (7.4-10.4) fl Immature Gran % (Auto) 0.5 (0-0.5) % Neut % (Auto) 77.2 H (45.5-73.1) % Lymph % (Auto) 13.3 L (18.3-44.2) % [place] % (Auto) 7.6 (2.6-8.5) % Eos % (Auto) 0.8 (0-4.4) % Baso % (Auto) 0.6 (0.2-1.2) % Lymph # (Auto) 1.69 (0.9-3.2) K/mm3 [place] # (Auto) 1.0 H (0.1-0.6) K/mm3 Eos # (Auto) 0.1 (0-0.3) K/mm3 Baso # (Auto) 0.1 (0.0-0.1) K/mm3 Abs Immat Gran (auto) 0.06 H (0.00-0.031) K/mm3 Absolute Neuts (auto) 9.8 H (1.3-6.7) K/mm3 Absolute Nucleated RBC 0.000 (0.0-0.012) K/mm3 Nucleated RBC % 0.0 (0.0-0.2) % PT 13.6 (11.1-14.7) Seconds INR 1.0 APTT 25.8 (22.3-36.8) Seconds Sodium 139 (137-145) mmol/L Potassium 4.0 (3.4-5.0) mmol/L Chloride 106 (98-107) mmol/L Carbon Dioxide 19 L (22-30) mmol/L Anion Gap 14 H (4-12) mmol/L BUN 22 H (9-20) mg/dL Creatinine 0.91 (0.7-1.3) mg/dL Estim Creat Clear Calc 80 ml/min Estimated GFR > 60 (59 - ) Glucose 137 H (65-110) mg/dL Calcium 8.9 (8.4-10.2) mg/dL Total Bilirubin 0.9 (0.2-1.3) mg/dL AST 20 (17-59) U/L ALT 16 (6-50) U/L Alkaline Phosphatase 87 (38-126) U/L Troponin I < 0.012 < 0.012 (0.000-0.034) ng/mL Total Protein 8.0 (6.3-8.2) g/dL Albumin 4.5 (3.5-5.1) g/dL Lipase 106 (23-300) U/L Urine Color Yellow (Yellow) Urine Appearance Clear (Clear) Urine pH 6.5 (5.0-9.0) Ur Specific [place] 1.017 (1.001-1.035) Urine Protein 1+ H (Negative) mg/dL Urine Glucose (UA) Negative (Negative) mg/dL Urine Ketones Trace H (Negative) mg/dL Ur Blood (Man) 2+ H (Negative) Urine Nitrate Negative (Negative) Urine Bilirubin Negative (Negative) Urine Urobilinogen 1.0 (<2.0) mg/dL Leukocyte Esterase Rfl Negative (Negative) KIT/UL Urine RBC 11-20 H (0-2) /hpf Urine WBC 0-5 (0-3) /hpf Ur Squamous Epith Cells None seen (Few) /hpf Urine Bacteria None seen /hpf Urine Casts 3-5 04/13/24 Range/Units 17:31 WBC (4.5-10.0) K/mm3 RBC (4.6-6.20) M/mm3 Hgb (14.0-18.0) g/dL Hct (42.0-52.0) % MCV (80-100) fl MCH (26-34) pg MCHC (32-36) g/dl RDW (11.5-14.5) % Plt Count (150-375) k/mm3 MPV (7.4-10.4) fl Immature Gran % (Auto) (0-0.5) % Neut % (Auto) (45.5-73.1) % Lymph % (Auto) (18.3-44.2) % [place] % (Auto) (2.6-8.5) % Eos % (Auto) (0-4.4) % Baso % (Auto) (0.2-1.2) % Lymph # (Auto) (0.9-3.2) K/mm3 [place] # (Auto) (0.1-0.6) K/mm3 Eos # (Auto) (0-0.3) K/mm3 Baso # (Auto) (0.0-0.1) K/mm3 Abs Immat Gran (auto) (0.00-0.031) K/mm3 Absolute Neuts (auto) (1.3-6.7) K/mm3 Absolute Nucleated RBC (0.0-0.012) K/mm3 Nucleated RBC % (0.0-0.2) % PT (11.1-14.7) Seconds INR APTT (22.3-36.8) Seconds Sodium (137-145) mmol/L Potassium (3.4-5.0) mmol/L Chloride (98-107) mmol/L Carbon Dioxide (22-30) mmol/L Anion Gap (4-12) mmol/L BUN (9-20) mg/dL Creatinine (0.7-1.3) mg/dL Estim Creat Clear Calc ml/min Estimated GFR (59 - ) Glucose (65-110) mg/dL Calcium (8.4-10.2) mg/dL Total Bilirubin (0.2-1.3) mg/dL AST (17-59) U/L ALT (6-50) U/L Alkaline Phosphatase (38-126) U/L Troponin I < 0.012 (0.000-0.034) ng/mL Total Protein (6.3-8.2) g/dL Albumin (3.5-5.1) g/dL Lipase (23-300) U/L Urine Color (Yellow) Urine Appearance (Clear) Urine pH (5.0-9.0) Ur Specific [place] (1.001-1.035) Urine Protein (Negative) mg/dL Urine Glucose (UA) (Negative) mg/dL Urine Ketones (Negative) mg/dL Ur Blood (Man) (Negative) Urine Nitrate (Negative) Urine Bilirubin (Negative) Urine Urobilinogen (<2.0) mg/dL Leukocyte Esterase Rfl (Negative) KIT/UL Urine RBC (0-2) /hpf Urine WBC (0-3) /hpf Ur Squamous Epith Cells (Few) /hpf Urine Bacteria /hpf Urine Casts <Ricardo Waters MD - Last Filed: 04/13/24 18:35> Discharge Plan Discharge Clinical Impression: Kidney stone, Atypical chest pain <Rehana Mcknight PA-C - Last Filed: 04/13/24 13:42> Patient Disposition: Home, Self-Care <Rehana Mcknight PA-C - Last Filed: 04/13/24 13:42> Condition: Stable <ALISSON Moya Last Filed: 04/13/24 13:42> Instructions: Antibiotic Form, Kidney Stones (ED) <ALISSON Moya Last Filed: 04/13/24 13:42> Additional Instructions: You were seen in the emergency department for a kidney stone. Please use Tylenol for pain. Use oxycodone for breakthrough pain. Use Zofran for nausea. Take Flomax to help pass your stone. Please follow-up with the urologist listed in your discharge paperwork for further management. Please return if you develop severe pain, fevers or intractable nausea and vomiting. <ALISSON Moya Last Filed: 04/13/24 13:42> Patient Language: Albanian <ALISSON Moya Last Filed: 04/13/24 13:42> Prescriptions: New acetaminophen 500 mg tablet 1,000 mg PO TID PRN (Reason: zachary) 7 Days Qty: 42 0RF ondansetron 4 mg tablet,disintegrating 4 mg PO Q8H PRN (Reason: nausea and vomiting) Qty: 30 0RF oxycodone 5 mg tablet 5 mg PO Q4H PRN (Reason: pain) Qty: 20 0RF tamsulosin [Flomax] 0.4 mg capsule 0.4 mg PO DAILY Qty: 30 0RF No Action tamsulosin [Flomax] 0.4 mg capsule 0.4 mg PO DAILY Qty: 10 0RF ondansetron 4 mg tablet,disintegrating 4 mg PO Q8H PRN (Reason: nausea and vomiting) Qty: 10 0RF tramadol 25 mg tablet 25 mg PO QID PRN (Reason: pain) Qty: 14 0RF benzonatate 200 mg capsule 200 mg PO TID PRN (Reason: cough) Qty: 15 0RF ondansetron 4 mg tablet,disintegrating 4 mg PO Q8H PRN (Reason: nausea and vomiting) Qty: 10 0RF <ALISSON Moya Last Filed: 04/13/24 13:42> Follow-up/Referrals: Nickolas,Alexis Valdez MD [Primary Care Provider] - Peter Hays MD [Physician] - 1 Week (Kidney stone ) <Rehana Mcknight PA-C - Last Filed: 04/13/24 13:42>
--- NOTE | 2024-04-13 14:12 | ECG_ITS ---
Test Date: 2024-04-13 14:25:54 Measurements Intervals [place] Rate: 55 P: 10 ND: 172 QRS: -18 QRSD: 110 T: -17 QT: 441 QTc: 425 Interpretive Statements SINUS BRADYCARDIA INTRAVENTRICULAR CONDUCTION DELAY Compared to ECG 04/13/2024 11:10:06 NO SIGNIFICANT CHANGES Electronically Signed On 04-13-2024 16:12:51 VENEREAL DISEASE INVESTIGATOR by Derek Shirley M.D.
[2024-04-13 15:01] LABS: Troponin I < 0.012 ng/mL (0.000-0.034)
--- OUTSIDE RECORDS SUMMARY | 2024-04-13 15:58 | XMS_ITS | Encounter Summary ---
Author Organization [facility] Address [address] [place] [address] Care Team Providers Care Ocean Forwarder Name Role Phone David Barreto MD Primary Care Provider [phone] Encounter Details Date Type Department Care Team (Late st Contact Info) Description 07/22/2005 Outpatient Historical [facility] [address] [place] [address] 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
--- OUTSIDE RECORDS SUMMARY | 2024-04-13 15:58 | XMS_ITS | Encounter Summary ---
Author Organization [facility] Address [address] [place] [address] Care Team Providers Care Conference And Event Organiser Name Role Phone David Barreto MD Primary Care Provider [phone] Encounter Details Date Type Department Care Team (Latest Contact Info) Description 11/08/2008 Outpatient Historical [facility], [address] David Barreto MD [address] [place] [address] Special Screening for Malignant Neoplasm of Prostate Social History Tobacco Use Types Packs/Day Years Used Date Smoking Tobacco: Every Day Cigarettes 1 38 Alcohol Use Standard Drinks/Week Comments Yes 0 (1 standard drink = 0.6 oz pur e alcohol) rarely Sex and Gender Information Value Date Recorded Sex Assigned at Not on file 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
--- OUTSIDE RECORDS SUMMARY | 2024-04-13 15:58 | XMS_ITS | Encounter Summary ---
Author Organization [facility] Address [address] [place] [address] Care Team Providers Care Flow Worker Name Role Phone David Barreto MD Primary Care Provider [phone] Encounter Details Date Type Department Care Team (Late st Contact Info) Description 10/13/2006 Orders Only [facility]INE [address] [place] [address] 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 BLOOD PRESSURE: 134/86. Right Arm Sitting PULSE: 76. Right Radial, Regular RESPIRATIONS: 16. TEMPERATURE: 97.7??f. Oral HEIGHT: 5ft9in. PAIN LEVEL 4.rt shoulder ALLERGIES: Allergies are as listed. MEDICATIONS: Medication list current. TOBACCO USE: Patient is a current tobacco user. CHIEF COMPLAINT Here for follow up evaluation.lexapro refill HISTORY: HISTORY: He thinks he may have had some heat stroke a week ago. After showering around 4 PM, he hadworked all day in the heat and was in a hurry and he felt like someone grabbed his triceps-bilaterally, and he layed down and it took about 5 minutes before he could move around. His arms were achey and he has had a dull CURRY since. He does not check BP as directed. 300.00-ANXIETY The condition remains stable. No complications noted from the medication presently being used. The patient denies excessive crying, a persistent feeling of sadness and hopelessness, and fatigue. Though he is having trouble due to right arm pain and numbness. 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 No major weight gain or loss. No malaise, chills, fever, diaphoresis.. ALLERGIC/IMMUNOLOGIC: No hay fever or history of environmental allergies. No chronic problems with immunity. EYES: No vision changes or diplopia. ENT: No hearing loss, epistaxis, hoarseness or dysphagia. No sinus congestion.. ENDOCRINE: No heat or cold intolerance, no excessive thirst.. CARDIAC: No chest pain, palpitations, orthopnea, dyspnea on exertion, or paroxysmal nocturnal dyspnea.. RESPIRATORY: No dyspnea, cough, hemoptysis or wheezing.. SKIN/BREAST/CHEST: No rashes or non-healing lesions. No breast symptoms noted. HEMATOLOGIC/LYMPHATIC: . : No dysuria or hematuria.. GI: No abdominal pain, nausea, vomiting, diarrhea, constipation, melena, or hematochezia.. NEUROLOGIC: No weakness, dizziness, loss of consciousness, transient ischemic symptoms, or seizures. MUSCULOSKELETAL: No muscle or joint pain, weakness, swelling or inflammation. No restriction of motion, no atrophy or backache. PSYCHIATRIC: No increased nervousness, mood changes or depression. Coping well. PAST MEDICAL HISTORY: MEDICAL: see list SURGICAL: see list CHILDHOOD DISEASES: Normal childhood diseases. CURRENT MEDICATIONS: see list ALLERGIES/ADVERSE REACTIONS: see list FAMILY HISTORY: FATHER: The father is . occurred at age 58. The cause of was pancreatic cancer. MOTHER: The mother is living. No major illnesses are known. SIBLINGS: Three siblings. 1) The patient's sister is living. No major illnesses are known. 2) The patient's sister is living. No major illnesses are known. 6) CHILDREN: Two children. Healthy. 1) The patient's son is living. No major illnesses are known. 2) The patient's son is living. No major illnesses are known. SOCIAL HISTORY: MARITAL HISTORY: , living with spouse. Remarried. PERSONS IN HOME: Spouse, mother. LIVING WILL: TOBACCO USE: Currently smokes. OCCUPATION: . ALCOHOL: Does not give any significant history of alcohol usage. CAFFEINE: The patient drinks caffeine 3 to 4 times per day. EXERCISES: The patient exercises. DIET: Follows no specific diet. SAFETY ISSUES: Has carbon monoxide alarms, has guns in the home, uses seat belts, has smoke alarms. STRESS ISSUES: None. PETS IN HOME: Dogs. Horses ILLICIT DRUG USE: Denies illicit drug use. OTHER HEALTH RISKS: RIDES HORSES. PHYSICAL EXAMINATION: CONSTITUTIONAL: GENERAL APPEARANCE: Healthy appearing patient in no distress. EYES: CONJUNCTIVAE/LIDS: Conjunctivae and lids appear normal. PUPILS: Pupils equal and normally reactive to light and accommodation. EARS, NOSE, MOUTH AND THROAT: EXTERNAL/EARS AND NOSE: Overall appearance normal with no scars, lesions or masses. NOSE (AND SINUS): No abnormality of the nose or sinuses is noted. ORAL: Inspection of gums, lips, palate, and teeth normal. No scars, lesions, or masses. Oral mucosaunremarkable with non-inflamed posterior pharynx. NECK/THYROID: Trachea midline. No thyroid enlargement, tenderness, or mass. No supraclavicular or cervical adenopathy. RESPIRATORY: Clear to auscultation and percussion. Normal respiratory effort. CARDIOVASCULAR: CARDIAC: Regular rhythm. No murmurs, rubs, or gallops. ARTERIAL: No aortic bruits. EDEMA/VARICOSITIES OF EXTREMITIES: No edema or varicosities. LYMPHATICS: No lymphadenopathy in the neck. GASTROINTESTINAL: ABDOMEN: Soft, non-tender, without masses. Bowel sounds active. LIVER/SPLEEN/KIDNEY: No hepatosplenomegaly, tenderness or nodularity. Kidneys not palpable. GENITOURINARY: BLADDER: Without fullness, masses or tenderness. MUSCULOSKELETAL EXAM: GAIT/STATION: Normal gait. DIGITS/NAILS: No clubbing, cyanosis, inflammation, or ischemia. HEAD AND NECK: Normal to inspection and palpation with satisfactory range of motion. Strength adequate with normal stability. SPINE/RIBS/PELVIS: No kyphosis, lordosis, full range of motion. Normal stability, strength and tone. EXTREMITIES: PE/MS/BILAT UPPER EXT No misalignment or tenderness. Full range of motion. Normal stability, strength and tone. SKIN: SKIN: Warm, dry, no diaphoresis, no significant lesions, irritation, rashes or ulcers. No induration, obvious subcutaneous nodules or tightening. NEUROLOGIC: CRANIAL NERVES: stone hand II-XII grossly intact. DEEP TENDON REFLEXES: Deep tendon reflexes 2+/4 and symmetrical. PSYCHIATRIC: Judgment appropriate. Oriented. Normal memory. Mood and affect appropriate. ASSESSMENT/PLAN: 300.00-ANXIETY ASSESSMENT: The patient's anxiety remains stable. Will not change medication, continue to monitor for complications. MEDICATIONS: LEXAPRO ORAL TABLET 20 MG, 1 Every Day, 30 Dispensed, 5 Fills, status: CONTINUED, 10/13/2006. PATIENT EDUCATION: Questions were allowed to stated satisfaction. The importance of compliance was stressed. The patient was told that there needs to be a commitment to following our agreed upon course of action. It was noted that failing to be compliant can lead to untoward health outcomes. Risks,benefits, and possible side effects of medication(s) were reviewed with the patient. 728.85-MUSCLE SPASM ASSESSMENT: Sounds like dehydration, would like to get labs. STATUS: New. PATIENT EDUCATION: Questions were allowed to stated satisfaction. CLINICAL GUIDELINES: Labs drawn. RETURN VISIT: The patient will be contacted to return after we review the labs ordered above. Patient instructed to return in 5 months. Electronically Signed by: Dayanna Yates MD on Friday, October 13, 2006 documented in this encounter Plan of Treatment Not on file documented as of this encounter Visit Diagnoses Not on filedocumented in this encounter Care Teams Flow Worker Relationship Specialty Start Date End Date David Barreto MD PCP - General 05/29/08 06/02/18 documented as of this encounter
--- OUTSIDE RECORDS SUMMARY | 2024-04-13 15:58 | XMS_ITS | Encounter Summary ---
Author Organization [facility] Address [address] [place] [address] Care Team Providers Care Flexographic Printing Press Operator Name Role Phone David Barreto MD Primary Care Provider [phone]- [phone] Encounter Details Date Type Department Care Team (Late st Contact Info) Description 12/12/2004 Outpatient Historical [facility] MEDICINE [address] [place] [address] 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 Gender Identity Not on file Sexual Orientation Not on file documented as of this encounter Last Filed Vital Signs Vital Sign Reading Time Taken Comments Blood Pressure 126/82 12/12/2004 3:45 PM CDT Pulse 72 12/12/2004 3:45 PM CDT Temperature 36.3 ??C (97.3 ??F) 12/12/2004 3:45 PM CD T Respiratory Rate 16 12/12/2004 3:45 PM CDT Oxygen Saturation - - Inhaled Oxygen Concentration - - Weight 106.6 kg (235 lb) 12/12/2004 3:45 PM CDT Height 175.3 cm (5' 9 ) 12/12/2004 3:45 PM CDT Body Mass Index 34.7 12/12/2004 3:45 PM CDT documented in this encounter Plan of Treatment Not on file documented as of this encounter Visit Diagnoses Not on filedocumented in this encounter Care Teams Flexographic Printing Press Operator Relationship Specialty Start Date End Date David Barreto MD PCP - General 05/29/08 06/02/18 documented as of this encounter
--- OUTSIDE RECORDS SUMMARY | 2024-04-13 15:58 | XMS_ITS | Clinical Summary ---
Author Organization [facility] Address [address] [place] [address] Care Team Providers Care Patient Support Specialist Name Role Phone Dave Mchugh MD Unavailable [phone] Yulisa Gray NP Unavailable Osman Marsh MD Primary Care Provider Pedro Cedeno MD Unavailable [phone] David Townsend MD Unavailable Allergies Active Allergy Reactions Criticality Noted Date Comments Codeine Anaphylaxis,Hives,Swelling High 5 Morphine Anaphylaxis,Nausea & Vomiting High 2018 Oxycodone Hives Medium 07/09/2022 Sweating Terbinafine Hives Medium 07/22/2005 Medications senna-docusate (PERICOLACE) 8.6-50 mgIndications:con stipation Take 2 tablets by mouth 2 (two) times a day 80 tablet 05/16/19 23 Active ergocalciferol (VITAMIN D) 50,000 unit capsuleIndication s:Vitamin D deficiency Take 1 capsule (50,000 Units total) by mouth once a week 12 capsule 1 07/10/19 23 Active acetaminophen (TYLENOL) 500 mg tablet Take 2 tablets (1,000 mg total) by mouth every 8 (eight) hours 90 tablet 05/04/19 24 Active aspirin 81 mg enteric coated tabletIndications :prevention of thrombosis Take 1 tablet (81 mg total) by mouth 2 (two) times a day 60 tablet 05/05/19 24 Active meloxicam (MOBIC) 7.5 mg tablet Take 1 tablet (7.5 mg total) by mouth daily 30 tablet 05/05/19 24 Active hydrOXYzine (VISTARIL) 50 mg capsule Take 1 capsule (50 mg total) by mouth every 6 (six) hours as needed for itching 30 capsule 05/05/19 24 Active traMADoL 100 mg tabletIndications :Pain Take 100 mg by mouth every 6 (six) hours as needed (pain) 42 tablet 05/26/19 24 Active nitroglycerin (NITROSTAT) 0.4 mg SL tabletIndications :acute episode of anginal pain Place 1 tablet (0.4 mg total) under the tongue every 5 (five) minutes as needed for chest pain 100 tablet 1 09/24/19 24 Active ondansetron ODT (ZOFRAN-ODT) 4 mg disintegrating tablet TAKE 1 TABLET ORALLY EVERY 8 HOURS NEEDED FOR NAUSEA AND VOMITING 11/26/19 24 Active benzonatate (TESSALON) 200 mg capsule TAKE 1 CAPSULE BY MOUTH 3 TIMES A DAY NEEDED FOR COUGH 11/26/19 24 Active icosapent ethyL (VASCEPA) 1 gram capsule TAKE 2 CAPSULES BY MOUTH TWICE A DAY 360 capsule 3 12/31/19 24 Active citalopram (CeleXA) 40 mg tablet TAKE 1 TABLET BY MOUTH EVERY DAY IN THE MORNING 90 tablet 02/25/20 24 Active glimepiride (AMARYL) 2 mg tabletIndications :type 2 diabetes mellitus Take 1 tablet (2 mg total) by mouth daily before breakfast 30 tablet 11 02/29/20 24 025 Active amLODIPine (NORVASC) 2.5 mg tablet TAKE 1 TABLET BY MOUTH EVERY DAY IN THE MORNING 90 tablet 03/03/20 24 Active lisinopriL (PRINIVIL,ZESTRIL ) 5 mg tablet TAKE 1 TABLET BY MOUTH EVERY DAY IN THE MORNING 90 tablet 03/03/20 24 Active isosorbide mononitrate ER (IMDUR) 30 mg 24 hr tablet TAKE 1 TABLET BY MOUTH EVERY DAY IN THE MORNING 90 tablet 03/03/20 24 Active tamsulosin (FLOMAX) 0.4 mg extended release capsuleIndication s:Benign prostatic hyperplasia with urinary retention TAKE 1 CAPSULE BY MOUTH EVERY DAY 100 capsule 1 03/09/20 24 Active atorvastatin (LIPITOR) 40 mg tabletIndications :Triple vessel coronary artery disease,Other hyperlipidemia TAKE 1 TABLET BY MOUTH EVERY DAY 90 tablet 3 04/05/19 25 Active atorvastatin (LIPITOR) 40 mg tabletIndications :Triple vessel coronary artery disease,Other hyperlipidemia TAKE 1 TABLET BY MOUTH EVERY DAY 90 tablet 1 10/06/19 24 025 Discontinued Active Problems Problem Noted Date Diagnosed Date Hospital discharge follow-up 05/18/2023 Assessment & Plan (05/18/2023 9:41 AM MURAL PAINTER): I have reviewed the hospital record, medications, and relevant testing from [facility] Cole Kira's recent admission. Complications and discharge plan have been noted, reviewed. Post-discharge testing has been ordered. Right knee pain 05/04/2023 Murmur, heart 01/16/2023 Primary osteoarthritis of right knee 12/30/2022 Hx of adenomatous colonic polyps 11/19/2022 Arthritis of left knee 05/14/2022 Primary osteoarthritis of left knee 02/18/2022 Overview (05/05/2022): Added automatically from request for surgery [id number] Hypertension, essential 08/12/2019 Assessment & Plan (04/28/2022 12:11 PM MURAL PAINTER): BP stable in office today Renal function stable Continues current regimen Assessment & Plan (03/18/2022 12:16 PM MURAL PAINTER): - chronic condition, stable status - Lisinopril 5 mg daily, Imdur 30 mg daily, Amlodipine 2.5 mg daily - currently managed by his service now developer - continue current management Assessment & Plan (01/17/2022 9:20 AM CDT): Blood pressure remains well controlled while on current regimen. Assessment & Plan (07/12/2021 9:03 AM CDT): He has good blood pressure control and calcium aung and Maurilio inhibitor. We will continue current doses. Assessment & Plan (12/28/2020 9:22 AM CDT): Diastolic BP slightly high today but normal on prior checks. Continue current therapy without change. Encouraged weight loss and continued increase in activity Assessment & Plan (06/15/2020 12:25 PM CDT): His blood pressure is well controlled on his current regimen of amlodipine 2.5 mg daily, lisinopril 5 mg daily, and Imdur 30 mg daily. We will recheck a BMP. We will otherwise make no changes. Assessment & Plan (11/25/2019 11:04 AM CDT): -BP at goal <130/80 -continue norvasc 2.5 daily, imdur 30 daily, lisinopril 5 daily -check BMP today Assessment & Plan (08/12/2019 2:06 PM CDT): -Pt due for regular labs -c/w amlodip, lasix, lisinopril Class 2 drug-induced obesity with serious comorbidity and body mass index (BMI) of 37.0 to 37.9 in adult 11/13/2017 Assessment & Plan (11/12/2022 9:33 AM CDT): BMI Follow-up includes: nutrition counseling, exercise counseling, and education provided. Assessment & Plan (07/09/2022 2:21 PM CDT): Healthy, low carbohydrate lifestyle and exercise for 150min/week recommended Assessment & Plan (04/28/2022 12:12 PM MURAL PAINTER): Healthy, low carbohydrate lifestyle and exercise for 150min/week recommended Assessment & Plan (03/18/2022 12:21 PM MURAL PAINTER): Wt Readings from Last 3 Encounters: 03/18/22 101.6 kg (224 lb) 02/14/22 99.6 kg (219 lb 9.6 oz) 01/17/22 102 kg (224 lb 12.8 oz) Body mass index is 37.28 kg/m??. - chronic condition, not at goal - not as active due to severe bilateral knee OA - BMI Follow-up includes: nutrition counseling, exercise counseling and education provided Assessment & Plan (08/12/2019 2:05 PM CDT): -Pt attempting to lose weight, but limited by knee pain -Pt swims, walks dog Assessment & Plan (11/13/2017 10:48 AM CDT): We discussed the importance of weight management. The patient remains physically active though has dietary indiscretions. We have talked about adequate dietary changes to assist with weight loss. Obstructive sleep apnea 11/10/2017 Overview (11/10/2017): Non compliant with CPAP Bilateral primary osteoarthritis of knee 018 Assessment & Plan (04/28/2022 12:14 PM MURAL PAINTER): Scheduled LTKA for 05/14/[address] Cedeno. Contingent on CXR results, patient deemed low to moderate risk for adverse reaction to anesthesia from PCP side, however this is not a cardiology clearance. Patient will need clearance from his service now developer. Per service now developer's most recent note, patient likely will need stress test prior to the surgery. Assessment & Plan (03/18/2022 12:22 PM MURAL PAINTER): - scheduled or Left TKA, will need right TKA - established with Orthopedics already Assessment & Plan (08/23/2019 11:58 AM CDT): History of osteoarthritis. - Bilateral knee injections with 40mg of kenalog and 1% of lidocaine in each knee - Patient tolerated procedure without complaints. - Counseled on warning signs and symptoms of injection. Cardiomyopathy, ischemic 04/25/2016 Overview (11/16/2018): Reported history of diastolic heart failure with ejection fraction of 48% in April 2016. Of note on left heart catheterization, his LVEDP was within normal limits at 10 mmHg. Assessment & Plan (01/17/2022 9:18 AM CDT): His most recent echocardiogram from June 2020 showed mildly enlarged left ventricle with normal ejection fraction of 63% with wall motion abnormalities including anterior septal and apical akinesis. He is euvolemic on exam. Will make no adjustments today. Assessment & Plan (07/12/2021 9:05 AM CDT): His overall ejection fraction is preserved. He has class 1 symptoms of heart failure. He appears euvolemic on examination. Will continue his current medical regimen. Assessment & Plan (06/15/2020 12:25 PM CDT): He had mild systolic dysfunction on TTE in April 2016. He has not had symptoms of heart failure. He has Lasix prescribed p.r.n. and he does not need to take it. On repeat transthoracic echocardiogram today, his ejection fraction looks roughly the same although the official read is pending in the speaking unit assembler is got a higher ejection fraction. We will continue lisinopril. We will make no other changes. Assessment & Plan (11/25/2019 11:03 AM CDT): -TTE in 2017 with EF 48% with unclear functional status due to severe bilateral OA -TTE when feasible to assess candidacy for ARNI -check CMP today -continue lisinopril 5 daily -no beat aung with resting bradycardia Assessment & Plan (11/19/2018 10:56 AM CDT): - His most recent transthoracic echocardiogram in April 2016 showed ejection fraction of 48% with mild global hypokinesis - He is without any significant heart failure symptoms - He will continue lisinopril 5 mg daily and Lasix PRN; he is unable to tolerate a beta-aung due to bradycardia Assessment & Plan (12/22/2017 1:44 PM CDT): -Ischemic cardiomyopathy w/ LVEF of 48% in 2017 (was 45% in 2013) -s/p CABG in 2012 -follows w/ cards -c/w GDMT per cardiology Assessment & Plan (11/13/2017 10:47 AM CDT): He is currently euvolemic and with NYHA class 1 symptoms. We will continue his guideline directed medical therapy with lisinopril and Lasix as needed. He is not on a beta-aung secondary to baseline bradycardia. History of colonic polyps 07/12/2015 H/O colonoscopy with polypectomy 07/04/2015 History of coronary artery bypass surgery 2012 Assessment & Plan (04/28/2022 12:10 PM MURAL PAINTER): CAD, stable Hx four-vessel CABG 01/07/[address] Jeison García Continues current medication regimen. Triple vessel coronary artery disease 12/22/2012 Overview (11/10/2017): Coronary artery disease status post four-vessel CABG on 01/07/13 with MOBLEY to the LAD, SVG to PDA, SVG to second diagonal, and a left radial to the obtuse marginal. At that time he had an abnormal stress echocardiogram with hypokinetic apex and chest discomfort. He has his last myocardial perfusion imaging in March 2013 showed small sized mild ischemia in the basal anteroseptal and inferoapical munguia with ejection fraction of 45%. Since that time he has undergone left heart catheterization on 07/21/2013, which showed patent grafts as well as some spasm of the radial artery Assessment & Plan (04/28/2022 12:10 PM MURAL PAINTER): CAD, stable Hx four-vessel CABG 01/07/13 [address] CardioDr Mchugh Continues current medication regimen. Assessment & Plan (03/18/2022 1:14 PM MURAL PAINTER): - chronic, stable - managed by his Front Elevator Operator Dr. Mchugh - coronary artery disease status post coronary artery bypass grafting with MOBLEY to LAD, SVG to the PDA, SVG to 2nd diagonal and free radial graft to obtuse marginal branch in December 2012 (subsequently in July 2013 underwent cardiac catheterization which showed patent graft) - currently on atorvastatin 40 mg daily - not on antiplatelet therapy - restart Aspirin 81 mg daily, reviewed cardiology note, must have been a misunderstanding - former heavy smoker, quit smoking in past 5 years, see smoking history section - continue current therapy Lab Results Component Value Date LDLCALC 53 01/17/2022 Assessment & Plan (01/17/2022 9:17 AM CDT): Patient has coronary artery disease and is status post remote CABG with MOBLEY to LAD, SVG to the PDA, SVG to 2nd diagonal and free radial graft to obtuse marginal branch in December 2012. Since then, the patient has remained chest pain-free. He is currently on good medical therapy to which he continues to compliant and continues to take atorvastatin 40 mg q.h.s., amlodipine 2.5 mg daily, aspirin 81 mg daily Imdur 30 mg daily and Vascepa 2 g b.i.d. He mentions that he will be eventually getting knee replacement surgery however date of this is unknown since he is in the process of switching insurances. Prior to undergoing surgery he will most likely need preoperative evaluation with nuclear stress study. Today, will make no adjustments to his current medical therapy. We will order a lipid panel. Assessment & Plan (07/12/2021 9:02 AM CDT): Patient remains angina free status post coronary bypass grafting. He is on a good medical regimen. Will make no changes. Assessment & Plan (12/28/2020 9:21 AM CDT): -No anginal symptoms. Risk factors well controlled. Cutting down on smoking. Encouraged continued cessation. Diastolic BP a bit high but normal on prior checks. Continue current therapy without change. Assessment & Plan (06/15/2020 12:24 PM CDT): He has a history of triple-vessel disease status post 4 vessel CABG in 2012. On repeat left heart catheterization in 2013 he had patent grafts. He has no current symptoms of angina. He continues on aspirin, atorvastatin 40, Imdur 30, lisinopril 5, and amlodipine 2.5. He is not on a beta-aung due to his slow heart rate. We have reviewed all labs and data. We will make no changes. Assessment & Plan (11/25/2019 11:01 AM CDT): -unclear functional status with severe bilateral OA with plans for TKA when feasible -schedule pharmacologic stress echo when feasible -secondary risk factor modification of BP and HLD as noted elsewhere -no beta-aung with resting bradycardia -continue norvasc, lisinopril, and imdur Assessment & Plan (11/19/2018 11:00 AM CDT): - He is status post 4 vessel CABG in 2012 with a MOBLEY to the LAD, saphenous vein graft to the PDA, saphenous vein graft to the 2nd diagonal, and a left radial to the OM; he also had a left heart catheterization performed 2013 which showed patent grafts and spasm of the radial artery to OM - As he has limited functional capacity due to osteoarthritis and he is potentially looking to get his knees replaced in the near future, we will plan to get a dobutamine stress echocardiogram as well as an EKG today - He will continue aspirin and atorvastatin Assessment & Plan (11/13/2017 10:46 AM CDT): He currently remains asymptomatic at this time. We will optimize his secondary risk factors by appropriate lipid management and blood pressure control. We have continued his rosuvastatin 20 mg daily which was changed during his last visit. We will continue his amlodipine as there was some spasm his radial artery in the past. We have asked him to continue to remain physically active as tolerated without any limitations. Hyperlipidemia 12/10/2012 Assessment & Plan (04/28/2022 12:12 PM MURAL PAINTER): Lipid panel stable, hx CAD Continues Atorvastatin 40 mg daily and Vascepa 2g BID Continues follow up with Front Elevator Operator. Assessment & Plan (03/18/2022 12:17 PM MURAL PAINTER): - chronic condition, stable status - has history of CAD - Currently Atorvastatin 40 mg daily, Vascepa 2 gram BID - most recent Lipid panel as shown below - continue current management Lab Results Component Value Date LDLCALC 53 01/17/2022 LDLCALC 75 02/02/2020 LDLCALC 73 09/03/2018 LDL 128 07/04/2015 LDL 120 11/08/2012 LDLDIRECT 74 12/28/2020 LDLDIRECT 63 11/25/2019 LDLDIRECT 105 05/08/2017 Lab Results Component Value Date TRIG 308 (H) 01/17/2022 TRIG 143 12/28/2020 TRIG 164 (H) 02/02/2020 Assessment & Plan (01/17/2022 9:20 AM CDT): Currently on atorvastatin 40 mg q.h.s. and vascepa 2 g b.i.d. his last lipid panel is from 01/02/2021. Will repeat lipid panel today Assessment & Plan (07/12/2021 9:05 AM CDT): He is on a high-intensity statin. He did mention that Vascepa is cost prohibitive. We will continue with high-intensity statin and check a lipid profile off is and see if any additional changes are needed. Assessment & Plan (12/28/2020 9:23 AM CDT): Last lipids under excellent control. Will recheck lipids today. Continue statin and icosapent ethyl. Assessment & Plan (06/15/2020 12:26 PM CDT): His lipid panel checked in January 2020 was acceptable with an LDL of 75. He continues on high-intensity statin as well as the Vascepa. Assessment & Plan (11/25/2019 11:03 AM CDT): -last LDL 73 on atorvastatin 40 -recheck lipids today and may increase atorvastatin pending results Assessment & Plan (08/12/2019 2:06 PM CDT): -Currently taking Crestor 40mg qD -pt encouraged to make lifestyle modifications Assessment & Plan (11/19/2018 10:59 AM CDT): - He was recently changed to atorvastatin 40 mg daily - His most recent LDL was 73, which is improved Assessment & Plan (12/22/2017 1:46 PM CDT): -Currently taking Crestor 20mg qD -pt is hesitant to increase dose because it makes him feel low energy -pt encouraged to make lifestyle modifications Assessment & Plan (11/13/2017 10:48 AM CDT): At last visit, we have changed him from pravastatin to rosuvastatin. He continues to tolerate this change well. We will obtain a lipid panel at his next visit. Somnolence 12/10/2012 Peripheral nerve disease 11/08/2012 Tobacco use disorder 05/29/2008 Assessment & Plan (03/18/2022 12:21 PM MURAL PAINTER): Social History Tobacco Use Smoking Status Former ? ? Packs/day: 2.25 ? ? Years: 45.00 ? ? Pack years: 101.25 ? ? Types: Cigarettes ? ? Start date: 03/16/1967 ? ? Quit date: 03/16/2012 ? ? Years since quittin.0 Smokeless Tobacco Never Tobacco Comments Started smoking at 12-13 years old Quit smoking at 2012 for 5 years and then restarted when his got sick in 2015- - significant smoking history - stopped after restarting 2022 - continue with abstinence Resolved Problems Problem Noted Date Diagnosed Date Resolved Date Arthritis of both knees 05/28/201808/15 Assessment & Plan (08/12/2019 2:08 PM CDT): -Chronic knee pain from osteoarthritis -Follows with ortho and has regular PT -Wears brace ~8hrs/day with moderate relief of pain -Will plan to see pt in [facility] for knee injections -Could consider tapering celexa and trying duloxetine -Could consider coxib Adenoma of colon 12/22/2017 03/18/2022 Assessment & Plan (12/22/2017 3:08 PM CDT): -Last colonoscopy w/ incomplete prep -2x 7-8mm sessile polyps removed that were found to be tubular ademonas -will need 2 day prep and repeat colonoscopy in 1 yr Chronic pain of both knees 10/30/2017 0 09/10/2020 Assessment & Plan (12/22/2017 1:42 PM CDT): -Chronic knee pain from osteoarthritis -Follows with ortho and has regular PT -Wears brace ~8hrs/day with moderate relief of pain -Advised to try cryotherapy if it is available and cheap Back pain 10/07/2016 03/18/2022 Osteoarthritis 06/10/2016 03/18/2022 Shortness of breath 01/21/2013 09/26/19 21 Overview (11/10/2017): Multifactorial dyspnea from heart failure, sleep apnea, obesity, deconditioning and potentially due to his tobacco use in the past Encounter for preventive health examination 04/15/2010 03/18/2022 Right arm pain 05/29/2008 03/18/2022 Shingles 05/29/2008 03/18/2022 Spasm of muscle 10/13/2006 03/18/2022 Elevated blood pressure read ing without diagnosis of hypertension 09/08/2006 03/18/2022 Anxiety state 12/12/2004 03/18/2022 Encounters Date Type Department Care Team Description 04/13/[address] [facility] Care at [address] [address] Martine Cornejo RN 02/29/2024 Telephone [facility] Primary Care at [address] [phone] Osman Marsh MD Appointment Request 01/14/2024 3:30 PM CDT Office Visit [facility] Cardiology [facility] [address] [place] [address] [place] [address] Kwame Khan MD PhD Cardiomyopathy, ischemic; Hypertension, essential; Murmur, heart; Other hyperlipidemia from Last 3 Months Immunizations Name Administration Dates Next Due Influenza, Quadrivalent, Spl it, Preservative Free, Intramuscular 12/22/2017 Influenza, Trivalent, IM (MDV) 11/24/2008 Influenza, Unspecified 05/18/2023(Deferr ed: Patient Refused),11/12/2022(Deferred: Patient Refused),03/18/2022,03/18/2021 RSV Vaccine, Pref, Recombina nt, Subunit, Adjuvanted, PF, IM (Arexvy) 03/30/2023 Td, adsorbed 03/16/2003 Tdap 03/30/2023 Surgical History Surgery Date Site/Laterality Comments CT RPR ANOM CORONARY ARTERY PULM ART ORIGIN GRAFT CORONARY ARTERY BYPASS GRAFT CHOLECYSTECTOMY ROTATOR CUFF REPAIR REPLACEMENT TOTAL KNEE Left COLONOSCOPY POLYPECTOMY FRACTURE SURGERY JOINT REPLACEMENT Medical History Medical History Date Comments Hypercholesteremia Hypertension Chronic constipation Coronary artery disease Obesity Arthritis Heart disease Kidney stone Family History Medical History Relation Name Comments Pancreatic cancer Father Family his tory of pancreatic cancer - (Added by TW Conv) Coronary artery disease Mother Fami ly history of coronary artery disease - (Added by TW Conv) Coronary artery disease Sister Fami ly history of coronary artery disease - (Added by TW Conv) Relation Name Status Comments Father Mother Sister Social History Tobacco Use Types Packs/Day Years Used Date Smoking Tobacco: Former Cigarettes 2.3 54.7 0 03/16/1967 - 12/14/2021 Passive Smoke Exposure: Never Smokeless Tobacco: Never Tobacco Cessation:Counseling Given: Not Answered Comments: Started smoking at 12-13 years old Quit smoking at 2013 for 5 years and then restarted when his got sick in Alcohol Use Standard Drinks/Week Comments Not Currently 0 (1 standard drink = 0.6 oz pur e alcohol) AUDIT-C Answer Date Recorded Q1: How often do you have a drink containing alc ohol? 2-4 times a month 05/04/2023 Q2: How many drinks containi ng alcohol do you have on a typical day when you are drinking? 1 or 2 05/04/2023 Q3: How often do you have si x or more drinks on one occasion? Never 05/04/2023 PHQ-2 Answer Date Recorded PHQ-2 Total Score (If total score is 3 or more points, staff should administer the PHQ-9) 0 11/12/2022 Personal Safety Answer Date Recorded Have you ever been in or are you currently in a harmful physical or emotional relationship or is someone making you feel afraid or unsafe? Denies 05/04/2023 Sex and Gender Information Value Date Recorded Sex Assigned at Not on file Legal Sex Male 9:55 AM MURAL PAINTER Gender Identity Not on file Sexual Orientation Straight 04/21/2022 12 :23 PM MURAL PAINTER Occupation Industry Job Start Date Job End Date Retired Not on file Not on file Not on file Obstetrics History Last Filed Vital Signs Vital Sign Reading Time Taken Comments Blood Pressure 96/59 01/14/2024 3:27 PM CDT Pulse 70 01/14/2024 3:27 PM CDT Temperature 36.8 ??C (98.2 ??F) 12/01/2023 1:08 PM CD T Respiratory Rate 20 12/01/2023 1:08 PM CDT Oxygen Saturation 93% 01/14/2024 3:27 PM CDT Inhaled Oxygen Concentration - - Weight 104 kg (229 lb 3.2 oz) 01/14/2024 3:27 PM CDT Height 175.3 cm (5' 9 ) 01/14/2024 3:27 PM CDT Body Mass Index 33.85 01/14/2024 3:27 PM CDT Plan of Treatment Health Maintenance Due Date Last Done Comments Hepatitis B Screening 1973 Lung Cancer Screening 2005 Well Visit 65+ 01/09/2020 Depression Screening 11/13/2023 11/12/2022, 07/09/2022, 03/18/2022 Influenza Vaccine (#1) 2023 , 03/18/2021, 12/22/2017, Additional history exists Fall Risk Assessment 05/05/2024 05/05/2023, 11/12/2022, 07/09/2022, Additional history exists Pneumococcal vaccine 65+ (1 of 1 - PCV) 05/17/2024 Postponed from 01/09/2020 (Patient declined, but will receive in the future) Zoster Vaccine (1 of 2) 05/17/2024 Post poned from 2005 (Insurance / Financial) Prostate Cancer Screening-PSA 11/30/2025 12/01/2023, 01/15/2021 Colon Cancer Screening-Colonoscopy 12/23/2025 12/23/2022, 09/21/2018, 07/13/2017 DTaP/Tdap/Td Vaccine (2 - Td or Tdap) 03/30/2033 03/30/2023, 03/16/2003 Abdominal Aortic Aneurysm (AAA) Screen Completed 01/10/2021 Colon Cancer Screening-CT Colonography Discontinued 12/23/2022, 09/21/2018, 07/13/2017 Colon Cancer Screening-DNA Stool Discontinued 12/23/2022, 09/21/2018, 07/13/2017 Colon Cancer Screening-FIT Discontinued 12/23, 09/21/2018, 07/13/2017 Colon Cancer Screening-Sigmoidoscopy Discontinued 12/23/2022, 09/21/2018, 07/13/2017 Hepatitis C Screening Completed 04/23/2023 Goals Goal Patient Goal Type Associated Problems Recent Progress Patient-Stated? Author CCM Chronic Pain Care Plan Chronic Care Management Rita Kamara, JANETH Note: Problem: Chronic Pain Goals: 1. Minimize further functional decline 2. Maximize quality of life 3. Control pain Strategies: - Activity/exercise program recommendation - Conservative stepwise pain medicine strategy with multi-disciplinary approach - Recommend healthy lifestyle strategies and compensatory methods as needed Medical Devices Implanted Type Area Mica Inspector Device Identifier Shelf Expiration Date Model / Serial / Lot [employer] Triathlon Knee 5 Baseplate Tibial Tritanium 5536-B-500 - Sna - [id number] Implanted:Qty: 1 on 05/04/2023 by Ariel Huffman MD at [facility] Other - see comments Right: Knee [employer] [id number] 02/14/2028 5536-B-5 00 / NA / [id number] Description:Implant Pause Pe rformed [employer] Triathlon Cruciate Retain Bead Knee Right 5 Component Femoral Pa 5517-F-502 - Sna - [id number] Implanted:Qty: 1 on 05/04/2023 by Ariel Huffman MD at [facility] Other - see comments Right: Knee [employer] [id number] 03/11/2028 5517-F-5 / [id number] Description:Implant Pause Pe rformed [employer] Insert Tibial Triathlon 5 H11mm Knee Bearing Condylar Stabilize Sterile 7561-L-427-E - Sna - [id number] Implanted:Qty: 1 on 05/04/2023 by Ariel Huffman MD at [facility] Other - see comments Right: Knee [employer] [id number] 12/07/2027 5531-G-5 11-E / NA / [id number] Description:Implant Pause Pe rformed [employer] Triathlon Knee 5 Baseplate Tibial Tritanium 5536-B-500 - [id number] Implanted:Qty: 1 on 05/14/2022 by Emir Germain MD at [facility] Left: Knee [employer] [id number] 03/05/2027 5536-B-5 00 / / [id number] [employer] Triathlon Cruciate Retain Bead Knee Left 6 Component Femoral Pa 5517-F-601 - [id number] Implanted:Qty: 1 on 05/14/2022 by Emir Germain MD at [facility] Left: Knee [employer] [id number] 04/21/2027 5517-F-6 01 / / [id number] [employer] Insert Tibial Triathlon 5 H9mm Knee Bearing Condylar Stabilize Sterile 8010-W-692-E - [id number] Implanted:Qty: 1 on 05/14/2022 by Emir Germain MD at [facility] Left: Knee [employer] [id number] 02/19/2027 5531-G-5 09-E / / [id number] Explanted Type Area Mica Inspector Device Identifier Shelf Expiration Date Model / Serial / Lot [employer] 4mm 110mm Pin Fixation Sterile 684670 - [id number] Explanted:Qty: 1 on 05/04/2023 by Ariel Huffman MD at [facility] Pin Right: Knee [employer] [id number] 11/05/2027 240994 / NA / [id number] Description:For provisional fixation only; Not intended for implant [employer] 4mm 140mm Knee Straight Pin Fixation Sterile 080703 - [id number] Explanted:Qty: 1 on 05/04/2023 by Ariel Huffman MD at [facility] Pin Right: Knee [employer] [id number] 08/23/2027 025666 / NA / [id number] Description:For provisional fixation only; Not intended for implant [employer] 4mm 140mm Knee Straight Pin Fixation Sterile 240952 - [id number] Explanted:Qty: 1 on 05/14/2022 by Emir Germain MD at [facility] Left: Knee [employer] [id number] / / Procedures Procedure Name Priority Date/Time Associated Diagnosis Comments PSA SCREEN Routine 12/01/2023 1:35 PM CDT Benign prostatic hyperplasia with urinary retention HEPATITIS C ANTIBODY Routine 04/23/2023 8:37 AM MURAL PAINTER Encounter for hepatitis C screening test for low risk patient COLONOSCOPY 12/23/2022 11:[address] ABDOMEN PELVIS W CONTRAST ED 01/10/2021 11:22 AM CDT from Last 3 Months or Most Recently Relevant to Health Maintenance Results * PSA screen (12/01/2023 1:35 PM CDT) PSA-Total 0.59 <=5.40 ng/mL Comment: Interpretive Data ?AGE ? SEX ?REFERENCE INTERVAL 0 minutes-150 years ?Female ?None 0 minutes-49 years ? Male ?None ? 50-59 years ? Male ?0-3.90 ? 60-69 years ? Male ?0-5.40 ? 70-79 years ? Male ?0-6.20 ? 80-150 years ?Male ?0-6.20 The [employer] PSA Total assay procedure was used. Results from different manufacturers or methods may not be comparable. Serial testing should be performed using the same method. Current interpretive data last revised 21. Blood 12/01/2023 1:35 PM CDT 12/01/2023 8:24 PM CDT us Osman Marsh MD LAB BLOOD ORDERABLES Final Result Performing Organization Address City/State/ZIP [facility] Phone Number [place] [address] [address] [place] [address] * Hepatitis C antibody Blood (04/23/2023 8:37 AM MURAL PAINTER) Hep C Ab Nonreactive Nonreactive [place] BLACK Comment: Interpretive Data Nonreactive: Antibodies to HCV not detected. Does NOT exclude the possibility of recent exposure to HCV. Equivocal: Equivocal for HCV antibodies. Supplemental molecular testing will be automatically performed to determine infection status in accordance with current CDC screening recommendations. ?? Reactive: Positive for HCV antibodies. ??This may represent current or past HCV infection. Supplemental molecular testing will be automatically performed to determine ??current infection status in accordance with current CDC screening recommendations. Interpretive data was last revised on 2019. Blood 04/23/2023 8:37 AM MURAL PAINTER 04/23/2023 3:59 PM MURAL PAINTER Yulisa Gray NP LAB MICROBIOLOGY - GENERAL ORDER KATE Final Result [place] [address] Department [place] [address] * COLONOSCOPY (12/23/2022 11:24 AM CDT) Anatomical Region Laterality Modality Other Narrative Procedure Note Kang Cai MD - 12/23/2022 11:24 AM CDT [facility] Patient Name: Douglas Malone Procedure Date: 12/23/2022 11:24AM Date of : 1955 Admit Type: Outpatient Age: 67 Gender: Male Attending MD: Kang Cai M.D. Room: [facility] 8 Note Status: Finalized Procedure: Colonoscopy Indications: Surveillance: Personal history of adenomatouspolyps on last colonoscopy > 3 years ago Referring MD: Osman Marsh M.D. Providers: Kang Cai M.D., Martine Mitchell M.D. Medicines: Monitored Anesthesia Care Complications: No immediate complications. Estimated Blood Loss: Estimated blood loss: none. Procedure: Pre-Anesthesia Assessment: - Prior to the procedure, a History and Physicalwas performed, and patient medications and allergieswere reviewed. The patient is competent. The risks and benefits of the procedure and the sedation optionsand risks were discussed with the patient. Allquestions were answered and informed consent was obtained. Patient identification and proposed procedure were verified by the physician in the pre-procedurearea. Mental Status Examination: alert and oriented.Airway Examination: normal oropharyngeal airway and neck mobility. Respiratory Examination: clear to auscultation. CV Examination: normal. Prophylactic Antibiotics: The patient does not requireprophylactic antibiotics. Prior Anticoagulants: The patient has taken no anticoagulant or antiplatelet agents. ASA Grade Assessment: II - A patient with mild systemic disease. After reviewing the risks and benefits,the patient was deemed in satisfactory condition to undergo the procedure. The anesthesia plan was touse monitored anesthesia care (MAC). Immediately priorto administration of medications, the patient was re-assessed for adequacy to receive sedatives. The heart rate, respiratory rate, oxygen saturations, blood pressure, adequacy of pulmonary ventilation,and response to care were monitored throughout the procedure. The physical status of the patient was re-assessed after the procedure. - Immediately prior to administration ofmedications, the patient was re-assessed for adequacy to receive sedatives. - The risks and benefits of the procedure and the sedation options and risks were discussed with the patient. All questions were answered and informed consent was obtained. The benefits, risks and alternatives of theprocedure and sedation were discussed and informed consentwas obtained. All questions were answered. Please referto the signed informed consent document in the medical record. The scope was passed under direct vision.The PCF H190L 2200-005 endoscope was introduced through the anus and advanced to the cecum, identified bythe ileocecal valve. The colonoscopy was performedwithout difficulty. The patient tolerated the procedurewell. The quality of the bowel preparation was fair. Anatomical landmarks were photographed. The bowel preparation used was CoLyte via split doseinstruction. Findings: The perianal and digital rectal examinations were normal. Multiple medium-mouthed diverticula were found in the entire colon. The exam was otherwise without abnormality on direct and retroflexion views. Impression: - Preparation of the colon was fair. - Diverticulosis in the entire examined colon. - The examination was otherwise normal on directand retroflexion views. - No specimens collected. Recommendation: - Discharge patient to home. - Resume previous diet. - Continue present medications. - Repeat colonoscopy in 6 months because the bowel preparation was suboptimal. - Return to referring physician as previously scheduled. Attending Participation: I was present and participated during the entire procedure from insertion to removal of the endoscope. Electronically signed by Kang Cai MD Kang Cai M.D. 12/23/2022 12:22:09 PM . Number of Addenda: 0 Note Initiated On: 12/23/2022 11:24 AM Recognized by the [employer] for promoting quality in endoscopy us Kang Cai MD ENDOSCOPY PROCEDURES Final Result * CT Abdomen Pelvis W Contrast (01/10/2021 11:22 AM CDT) Anatomical Region Laterality Modality Body N/A Computed Tomogra phy 01/10/2021 11:3 1 AM CDT Impressions 01/10/2021 11:31 AM CDT 1. ??Moderate right hydronephrosis with periureteral and perinephric stranding because of an obstructing 2 mm stone in the right proximal ureter. 2. ??Normal appendix. 3. ??Diverticulosis but no diverticulitis. 4. ??Enlarged prostate gland. 5. ??Additional details above. Electronically signed by: Zbigniew Minor M.D. Narrative 01/10/2021 11:[address] abdomen and pelvis with contrast HISTORY: Abdominal pain. ??Right lower quadrant pain. ??Nausea. TECHNIQUE: CT abdomen and pelvis was done with contrast 100 mL Optiray 350 intravenously. FINDINGS: No prior study is dated 03/31/2010. prior studies for correlation. There is some basilar atelectasis, left greater than right. ??There is some pleural thickening on the left. There is no acute fracture or acute bone destruction seen. Degenerative changes are present throughout, most prominent at L3-L4 and L4-L5. ??There is mild L4 on L5 anterolisthesis. 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 Small hiatal hernia suspected. The spleen appears normal. Left kidney contains several hypodensities likely cysts. ??The left adrenal gland is normal. ??The left ureter is normal in caliber and contains no definite stones. There is mild diffuse bladder wall thickening. ??The prostate gland is enlarged and heterogeneous and contains calcifications. There is severe atherosclerosis. ??There is no aortic aneurysm detected. There is no definite evidence of pancreatitis or pancreatic mass. Right adrenal gland is normal. There is mild hepatic steatosis. ??In the left lobe of the liver is of indeterminate hypodense lesion of 9 mm. ??This lesion was likely present on 03/31/2010 exam. ??Possibly slightly larger by a few millimeters but again likely present previously. No definite abnormal biliary ductal dilatation. The gallbladder appears to have been removed. There is slightly decreased enhancement of the right kidney compared to the left. ??There is abnormal perinephric and periureteral stranding/edema. ??There are some small probable cysts of the right kidney. ??Right adrenal gland is normal other than some mild stable nodularity. There is moderate right hydronephrosis. ??In the right proximal ureter is a 2 mm stone. ??The mid and distal ureter show no definite stones. There is moderate stool in the rectum distally. ??There is diverticulosis but no definite evidence of colonic diverticulitis. There is no evidence of appendicitis. Areas of mild small bowel distention likely on the basis of an ileus. Procedure Note Zbigniew Minor MD - 01/10/2021 CT abdomen and pelvis with contrast HISTORY: Abdominal pain. Right lower quadrant pain. Nausea. TECHNIQUE: CT abdomen and pelvis was done with contrast 100 mL Optiray 350 intravenously. FINDINGS: No prior study is dated 03/31/2010. prior studies for correlation. There is some basilar atelectasis, left greater than right. There is some pleural thickening on the left. There is no acute fracture or acute bone destruction seen. Degenerative changes are present throughout, most prominent at L3-L4 and L4-L5. There is mild L4 on L5 anterolisthesis. 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 Small hiatal hernia suspected. The spleen appears normal. Left kidney contains several hypodensities likely cysts. The left adrenal gland is normal. The left ureter is normal in caliber and contains no definite stones. There is mild diffuse bladder wall thickening. The prostate gland is enlarged and heterogeneous and contains calcifications. There is severe atherosclerosis. There is no aortic aneurysm detected. There is no definite evidence of pancreatitis or pancreatic mass. Right adrenal gland is normal. There is mild hepatic steatosis. In the left lobe of the liver is of indeterminate hypodense lesion of 9 mm. This lesion was likely present on 03/31/2010 exam. Possibly slightly larger by a few millimeters but again likely present previously. No definite abnormal biliary ductal dilatation. The gallbladder appears to have been removed. There is slightly decreased enhancement of the right kidney compared to the left. There is abnormal perinephric and periureteral stranding/edema. There are some small probable cysts of the right kidney. Right adrenal gland is normal other than some mild stable nodularity. There is moderate right hydronephrosis. In the right proximal ureter is a 2 mm stone. The mid and distal ureter show no definite stones. There is moderate stool in the rectum distally. There is diverticulosis but no definite evidence of colonic diverticulitis. There is no evidence of appendicitis. Areas of mild small bowel distention likely on the basis of an ileus. IMPRESSION: 1. Moderate right hydronephrosis with periureteral and perinephric stranding because of an obstructing 2 mm stone in the right proximal ureter. 2. Normal appendix. 3. Diverticulosis but no diverticulitis. 4. Enlarged prostate gland. 5. Additional details above. Electronically signed by: Zbigniew Minor M.D. Kang Ty Jr., MD IMG CT PROCEDURES Final Result from Last 3 Months or Most Recently Relevant to Health Maintenance Insurance [facility] [address] [facility] [place] [address] Advance Directives For more information, please contact: [phone] * Full Code (Latest Code Status on File) Date Activated Date Inactivated Comments 05/04/2023 12:41 PM 05/05/2023 2:10 PM * Full Code Date Activated Date Inactivated Comments 12/23/2022 10:03 AM 12/23/2022 5:03 PM * Full Code Date Activated Date Inactivated Comments 05/14/2022 3:12 PM 05/15/2022 2:08 PM * Full Code Date Activated Date Inactivated Comments 09/21/2018 2:31 PM 09/21/2018 9:18 PM Care Teams Patient Support Specialist Relationship Specialty Start Date End Date Osman Marsh MD [address] [place] [address] [address] [place] [address] PCP - General Family Medicine 04/28/22 Dave Mchugh MD Referring Physician Cardiology 03/18/22 Yulisa Gray NP Nurse Practitioner Family Medicine 03/21/22 Pedro Cedeno MD [address] [facility] [place] [address] Consulting Physician Orthopedic Surgery 04/30/22 David Townsend MD [address] [facility] [place] [address] Surgeon Orthopedic Surgery 02/17/23
--- OUTSIDE RECORDS SUMMARY | 2024-04-13 15:58 | XMS_ITS | Encounter Summary ---
Author Organization [facility] Address [address] [place] [address] Care Team Providers Care Bean Snipper Name Role Phone David Barreto MD Primary Care Provider [phone]- [phone] Encounter Details Date Type Department Care Team (Late st Contact Info) Description 05/25/2007 Outpatient Historical [facility] [address] 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 Gender Identity Not on file Sexual Orientation Not on file documented as of this encounter Last Filed Vital Signs Vital Sign Reading Time Taken Comments Blood Pressure 136/92 05/25/2007 3:45 PM CDT Pulse 68 05/25/2007 3:45 PM CDT Temperature 37 ??C (98.6 ??F) 05/25/2007 3:45 PM CDT Respiratory Rate 16 05/25/2007 3:45 PM CDT Oxygen Saturation - - Inhaled Oxygen Concentration - - Weight 106.1 kg (234 lb) 05/25/2007 3:45 PM CDT Height 175.3 cm (5' 9 ) 05/25/2007 3:45 PM CDT Body Mass Index 34.56 05/25/2007 3:45 PM CDT documented in this encounter Plan of Treatment Not on file documented as of this encounter Visit Diagnoses Not on filedocumented in this encounter Care Teams Bean Snipper Relationship Specialty Start Date End Date David Barreto MD PCP - General 05/29/08 06/02/18 documented as of this encounter
--- OUTSIDE RECORDS SUMMARY | 2024-04-13 15:58 | XMS_ITS | Encounter Summary ---
Author Organization [employer] [facility] Address [address] [place] [address] Care Team Providers Care Stockroom Attendant Name Role Phone David Barreto MD Primary Care Provider [phone]- [phone] Encounter Details Date Type Department Care Team (Late st Contact Info) Description 05/25/2007 Orders Only [facility] [address] 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 BLOOD PRESSURE: 136/92. Right Arm Sitting PULSE: 68. Right Radial, Regular RESPIRATIONS: 16. TEMPERATURE: 98.6??f. Oral HEIGHT: 5ft9in. PAIN LEVEL 4.lt shoulder ALLERGIES: Allergies are as listed. MEDICATIONS: Medication list current. TOBACCO USE: Patient is a current tobacco user. CHIEF COMPLAINT Here for follow up evaluation.Pt here to discuss lexapro, he states it is working well HISTORY: HISTORY: 300.00-ANXIETY The condition has improved. No complications noted from the medication presently being used. 782.1-RASH Pt has h/o of shingles on his side, has a patch on his side on the spot where he has hadit and it is itchy, burning and thinks it may be coming out. 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 SKIN/BREAST/CHEST: See HISTORY OF PRESENT ILLNESS. HEMATOLOGIC/LYMPHATIC: . : No dysuria or hematuria.. GI: No abdominal pain, nausea, vomiting, diarrhea, constipation, melena, or hematochezia.. NEUROLOGIC: No weakness, dizziness, loss of consciousness, transient ischemic symptoms, or seizures. MUSCULOSKELETAL: No muscle or joint pain, weakness, swelling or inflammation. No restriction of motion, no atrophy or backache. PSYCHIATRIC: See HISTORY OF PRESENT ILLNESS. PAST MEDICAL HISTORY: MEDICAL: see list SURGICAL: [...] Regular rhythm. No murmurs, rubs, or gallops. EDEMA/VARICOSITIES OF EXTREMITIES: No edema or varicosities. LYMPHATICS: No lymphadenopathy in the neck. GASTROINTESTINAL: ABDOMEN: Soft, non-tender, without masses. Bowel sounds active. LIVER/SPLEEN/KIDNEY: No hepatosplenomegaly, tenderness or nodularity. Kidneys not palpable. MUSCULOSKELETAL EXAM: GAIT/STATION: Normal gait. DIGITS/NAILS: No clubbing, cyanosis, inflammation, or ischemia. HEAD AND NECK: Normal to inspection and palpation with satisfactory range of motion. Strength adequate with normal stability. SPINE/RIBS/PELVIS: No kyphosis, lordosis, full range of motion. Normal stability, strength and tone. SKIN: SKIN: Warm, dry, no diaphoresis, no significant lesions, irritation, rashes or ulcers. No induration, obvious subcutaneous nodules or tightening. RASH/LESION #1 LOCATION: Left abdomen. CHARACTERISTICS: The lesion is erythematous. The rash is macular. The lesion border is irregular. The lesion surface is scaling. The lesions are grouped. ASSESSMENT tinea or shingles? NEUROLOGIC: CRANIAL NERVES: collaborative physician II-XII grossly intact. PSYCHIATRIC: Judgment appropriate. Oriented. Normal memory. Mood and affect appropriate. ASSESSMENT/PLAN: 300.00-ANXIETY ASSESSMENT: The patient's anxiety remains stable. Will not change medication, continue to monitor for complications. MEDICATIONS: LEXAPRO ORAL TABLET 20 MG, 1 Every Day, 30 Dispensed, status: CONTINUED, 05/11/2007. PATIENT EDUCATION: Questions were allowed to stated satisfaction. The importance of compliance was stressed. The patient was told that there needs to be a commitment to following our agreed upon course of action. It was noted that failing to be compliant can lead to untoward health outcomes. Risks,benefits, and possible side effects of medication(s) were reviewed with the patient. 782.1-RASH ASSESSMENT: Could be shingles or tinea. STATUS: New. MEDICATIONS: LOTRIMIN AF EXTERNAL CREAME 1 % TUBES, apply BID- TID to affected area, 1 Dispensed, status: NEW PRESCRIPTION, 05/25/2007. PATIENT EDUCATION: Questions were allowed to stated satisfaction. The importance of compliance was stressed. The patient was told that there needs to be a commitment to following our agreed upon course of action. It was noted that failing to be compliant can lead to untoward health outcomes. RETURN VISIT: Patient instructed to return in 3 months. Electronically Signed by: Dayanna Yates MD on Friday, May 25, 2007 documented in this encounter Plan of Treatment Not on file documented as of this encounter Visit Diagnoses Not on filedocumented in this encounter Care Teams Stockroom Attendant Relationship Specialty Start Date End Date David Barreto MD PCP - General 05/29/08 06/02/18 documented as of this encounter
--- OUTSIDE RECORDS SUMMARY | 2024-04-13 15:58 | XMS_ITS | Encounter Summary ---
Author Organization [facility] Address [address] [place] [address] Care Team Providers Care Awning Erector Name Role Phone David Barreto MD Primary Care Provider [phone]- [phone] Encounter Details Date Type Department Care Team (Late st Contact Info) Description 06/23/2001 Outpatient Historical [facility] MEDICINE [address] [place] [address] 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
--- OUTSIDE RECORDS SUMMARY | 2024-04-13 15:58 | XMS_ITS | Referral Summary ---
Author Organization [facility] Address [address] [place] [address] Care Team Providers Care Rn Lactation Consultant Name Role Phone Dave Mchugh MD Unavailable [phone] Yulisa Gray NP Unavailable Osman Marsh MD Primary Care Provider Pedro Cedeno MD Unavailable David Townsend MD Unavailable Encounters Date Type Department Care Team Description 04/13/2024 Nurse Triage [facility] Primary Care at [address] [address] Martine Cornejo RN 02/29/2024 Telephone [facility] Medical [facility] Primary Care at [address] [address] Osman Marsh MD Appointment Request 01/14/2024 3:30 PM CDT Office Visit [facility] Cardiology [facility] Advanced Medicine 8th [place] [address] [place] [address] Kwame Khan MD PhD Cardiomyopathy, ischemic; Hypertension, essential; Murmur, heart; Other hyperlipidemia from Last 3 Months Allergies Active Allergy Reactions Criticality Noted Date [...] 05/18/2023 Assessment & Plan (05/18/2023 9:41 AM PARTS LISTER): I have reviewed the hospital record, medications, and relevant testing from Kang Malone's recent admission. Complications and discharge plan have been noted, reviewed. Post-discharge testing has been ordered. Right knee pain 05/04/2023 Murmur, heart 01/16/2023 Primary osteoarthritis of right knee 12/30/2022 Hx of adenomatous colonic polyps 11/19/2022 Arthritis of left knee 05/14/2022 Primary osteoarthritis of left knee 02/18/2022 Overview (05/05/2022): Added automatically from request for surgery [id number] Hypertension, essential 08/12/2019 Assessment & Plan (04/28/2022 12:11 PM PARTS LISTER): BP stable in office today Renal function stable Continues current regimen Assessment & Plan (03/18/2022 12:16 PM PARTS LISTER): - chronic condition, stable status - Lisinopril 5 mg daily, Imdur 30 mg daily, Amlodipine 2.5 mg daily - currently managed by his department coordinator - continue current management Assessment & Plan [...] recommended Assessment & Plan (04/28/2022 12:12 PM PARTS LISTER): Healthy, low carbohydrate lifestyle and exercise for 150min/week recommended Assessment & Plan (03/18/2022 12:21 PM PARTS LISTER): Wt Readings from Last 3 Encounters: 03/18/22 [...] 018 Assessment & Plan (04/28/2022 12:14 PM PARTS LISTER): Scheduled LTKA for 05/14/[address] Cedeno. Contingent on CXR results, patient deemed low to moderate risk for adverse reaction to anesthesia from PCP side, however this is not a cardiology clearance. Patient will need clearance from his department coordinator. Per department coordinator's most recent note, patient likely will need stress test prior to the surgery. Assessment & Plan (03/18/2022 12:22 PM PARTS LISTER): - scheduled or Left TKA, will need [...] the official read is pending in the pump tester is got a higher ejection fraction. We [...] 2012 Assessment & Plan (04/28/2022 12:10 PM PARTS LISTER): CAD, stable Hx four-vessel CABG 01/07/13 [address] CardioDr Mchugh Continues current medication regimen. Triple vessel coronary [...] artery Assessment & Plan (04/28/2022 12:10 PM PARTS LISTER): CAD, stable Hx four-vessel CABG 01/07/[address] Jeison García Continues current medication regimen. Assessment & Plan (03/18/2022 1:14 PM PARTS LISTER): - chronic, stable - managed by his Newspaper Subscription Solicitor Dr. Mchugh - coronary artery disease status [...] 12/10/2012 Assessment & Plan (04/28/2022 12:12 PM PARTS LISTER): Lipid panel stable, hx CAD Continues Atorvastatin 40 mg daily and Vascepa 2g BID Continues follow up with Newspaper Subscription Solicitor. Assessment & Plan (03/18/2022 12:17 PM PARTS LISTER): - chronic condition, stable status - has [...] 05/29/2008 Assessment & Plan (03/18/2022 12:21 PM PARTS LISTER): Social History Tobacco Use Smoking Status Former [...] then restarted when his got sick in 2015-17 - significant smoking history - stopped after restarting 2022 - continue with abstinence Resolved Problems Problem Noted Date Diagnosed Date Resolved Date Arthritis of both knees 05/28/201808/15 Assessment & Plan (08/12/2019 2:08 PM CDT): -Chronic knee pain from osteoarthritis -Follows with ortho and has regular PT -Wears brace ~8hrs/day with moderate relief of pain -Will plan to see pt in [facility] for knee injections -Could consider tapering celexa [...] hypertension 09/08/2006 03/18/2022 Anxiety state 12/12/2004 03/18/2022 Immunizations Name Administration Dates Next Due Influenza, Quadrivalent, Spl it, Preservative Free, Intramuscular 12/22/2017 Influenza, Trivalent, IM (MDV) 11/24/2008 Influenza, Unspecified 05/18/2023(Deferr ed: Patient Refused),11/12/2022(Deferred: Patient Refused),03/18/2022,03/18/2021 RSV Vaccine, Pref, Recombina nt, Subunit, Adjuvanted, PF, IM (Arexvy) 03/30/2023 Td, adsorbed 03/16/2003 Tdap 03/30/2023 Social History Tobacco Use Types Packs/Day Years Used Date Smoking Tobacco: Former Cigarettes 2.3 54.7 0 03/16/1967 - 12/14/2021 Passive Smoke Exposure: Never Smokeless Tobacco: Never Tobacco Cessation:Counseling Given: Not Answered Comments: Started smoking at 12-13 years old Quit smoking at 2012 for 5 years and then restarted when his got sick in 2016- Alcohol Use Standard Drinks/Week Comments Not Currently [...] on file Legal Sex Male 9:55 AM PARTS LISTER Gender Identity Not on file Sexual Orientation Straight 04/21/2022 12 :23 PM PARTS LISTER Occupation Industry Job Start Date Job End Date Retired Not on file Not on file Not on file Last Filed Vital Signs Vital Sign Reading [...] 01/14/2024 3:27 PM CDT Plan of Treatment Not on file Goals Goal Patient Goal Type Associated Problems [...] as needed Medical Devices Implanted Type Area Licensed Psychologist Director Device Identifier Shelf Expiration Date Model / Serial / Lot [employer] Triathlon Knee 5 Baseplate Tibial Tritanium 5536-B-500 - Sna - [id number] Implanted:Qty: 1 on 05/04/2023 by Ariel Huffman MD at [facility] Other - see comments Right: Knee [employer] [id number] 02/14/2028 5536-B-5 00 / NA / [id number] Description:Implant Pause Pe rformed [employer] Triathlon Cruciate Retain Bead Knee Right 5 Component Femoral Pa 5517-F-502 - Sna - [id number] Implanted:Qty: 1 on 05/04/2023 by Ariel Huffman MD at [facility] Other - see comments Right: Knee [employer] [id number] 03/11/2028 5517-F-5 02 / NA / [id number] Description:Implant Pause Pe rformed [employer] Insert Tibial Triathlon 5 H11mm Knee Bearing Condylar Stabilize Sterile 2352-G-972-E - Sna - [id number] Implanted:Qty: 1 on 05/04/2023 by Ariel Huffman MD at [facility] Other - see comments Right: Knee [employer] [id number] 12/07/2027 5531-G-5 11-E / NA / [id number] Description:Implant Pause Pe rformed [employer] Triathlon Knee 5 Baseplate Tibial Tritanium 5536-B-500 - [id number] Implanted:Qty: 1 on 05/14/2022 by Emir Germain MD at [facility] Left: Knee [employer] [id number] 03/05/2027 5536-B-5 00 / / [id number] [employer] Triathlon Cruciate Retain Bead Knee Left 6 Component Femoral Pa 5517-F-601 - [id number] Implanted:Qty: 1 on 05/14/2022 by Emir Germain MD at [facility] Left: Knee [employer] [id number] 04/21/2027 5517-F-6 01 / / [id number] [employer] Insert Tibial Triathlon 5 H9mm Knee Bearing Condylar Stabilize Sterile 6970-G-889-E - [id number] Implanted:Qty: 1 on 05/14/2022 by Emir Germain MD at [facility] Left: Knee [employer] [id number] 02/19/2027 5531-G-5 09-E / / [id number] Explanted Type Area Licensed Psychologist Director Device Identifier Shelf Expiration Date Model / Serial / Lot [employer] 4mm 110mm Pin Fixation Sterile 188152 - [id number] Explanted:Qty: 1 on 05/04/2023 by Ariel Huffman MD at [facility] Pin Right: Knee [employer] [id number] 11/05/2027 119664 / NA / [id number] Description:For provisional fixation only; Not intended for implant [employer] 4mm 140mm Knee Straight Pin Fixation Sterile 401481 - [id number] Explanted:Qty: 1 on 05/04/2023 by Ariel Huffman MD at [facility] Pin Right: Knee [employer] [id number] 08/23/2027 [id number] / NA / [id number] Description:For provisional fixation only; Not intended for implant [employer] 4mm 140mm Knee Straight Pin Fixation Sterile [id number] - [id number] Explanted:Qty: 1 on 05/14/2022 by Emir Germain MD at [facility] Left: Knee [employer] [id number] / / Procedures Procedure Name Priority Date/Time Associated Diagnosis Comments PSA SCREEN Routine 12/01/2023 1:35 PM CDT Benign prostatic hyperplasia with urinary retention HEPATITIS C ANTIBODY Routine 04/23/2023 8:37 AM PARTS LISTER Encounter for hepatitis C screening test for low risk patient COLONOSCOPY 12/23/2022 11:[address] ABDOMEN PELVIS W CONTRAST ED 01/10/2021 11:22 AM CDT from Last 3 Months or Most Recently Relevant to Health Maintenance Results * PSA screen (12/01/2023 1:35 PM CDT) [facility] PSA-Total 0.59 <=5.40 ng/mL Comment: Interpretive Data [...] Marsh MD LAB BLOOD ORDERABLES Final Result [facility] [address] [address] Department [place] [address] * Hepatitis C antibody Blood (04/23/2023 8:37 AM PARTS LISTER) Hep C Ab Nonreactive Nonreactive [place] BLACK [...] revised on 2019. Blood 04/23/2023 8:37 AM PARTS LISTER 04/23/2023 3:59 PM PARTS LISTER us Yulisa Gray NP LAB MICROBIOLOGY - GENERAL ORDER KATE Final Result [place] [address] [address] Department of Laboratories [place] [id number] * COLONOSCOPY (12/23/2022 11:24 AM CDT) Anatomical Region Laterality Modality Other Narrative Procedure Note Kang Cai MD - 12/23/2022 11:24 AM CDT [facility] Patient Name: Douglas Malone Procedure Date: 12/23/2022 11:24AM Date of : 1955 Admit Type: Outpatient Age: 67 Gender: Male Attending MD: Kang Cai M.D. Room: [facility] ENDOSCOPY ROOM 8 Note Status: Finalized Procedure: [...] was passed under direct vision.The PCF [id number] 2966-185 endoscope was introduced through the anus and [...] On: 12/23/2022 11:24 AM Recognized by the [employer] for promoting quality [...] Most Recently Relevant to Health Maintenance Insurance [employer] [facility] [place] [id number] Advance Directives For more information, please contact: [phone] * Full Code (Latest Code Status on File) Date Activated Date Inactivated Comments 05/04/2023 12:41 PM 05/05/2023 2:10 PM * Full Code Date Activated Date Inactivated Comments 12/23/2022 10:03 AM 12/23/2022 5:03 PM * Full Code Date Activated Date Inactivated Comments 05/14/2022 3:12 PM 05/15/2022 2:08 PM * Full Code Date Activated Date Inactivated Comments 09/21/2018 2:31 PM 09/21/2018 9:18 PM Care Teams Rn Lactation Consultant Relationship Specialty Start Date End Date Osman Marsh MD [address] [facility] [address] [place] [address] PCP - General Family Medicine 04/28/22 Dave Mchugh MD Referring Physician Cardiology 03/18/22 Yulisa Gray NP Nurse Practitioner Family Medicine 03/21/22 Pedro Cedeno MD [address] [place] [address] Consulting Physician Orthopedic Surgery 04/30/22 David Townsend MD [address] [place] [address] Surgeon Orthopedic Surgery 02/17/23
--- OUTSIDE RECORDS SUMMARY | 2024-04-13 15:58 | XMS_ITS | Encounter Summary ---
Author Organization [facility] Address [address] [place] [address] Care Team Providers Care Biometrics Head Name Role Phone David Barreto MD Primary Care Provider [phone]- [phone] Encounter Details Date Type Department Care Team (Late st Contact Info) Description 10/01/2004 Outpatient Historical [facility] [address] 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 Gender Identity Not on file Sexual Orientation Not on file documented as of this encounter Last Filed Vital Signs Vital Sign Reading Time Taken Comments Blood Pressure 124/90 10/01/2004 4:00 PM CDT Pulse 84 10/01/2004 4:00 PM CDT Temperature 36 ??C (96.8 ??F) 10/01/2004 4:00 PM CDT Respiratory Rate 16 10/01/2004 4:00 PM CDT Oxygen Saturation - - Inhaled Oxygen Concentration - - Weight 104.8 kg (231 lb) 10/01/2004 4:00 PM CDT Height 175.3 cm (5' 9 ) 10/01/2004 4:00 PM CDT Body Mass Index 34.11 10/01/2004 4:00 PM CDT documented in this encounter Plan of Treatment Not on file documented as of this encounter Visit Diagnoses Not on filedocumented in this encounter Care Teams Biometrics Head Relationship Specialty Start Date End Date David Barreto MD PCP - General 05/29/08 06/02/18 documented as of this encounter
--- OUTSIDE RECORDS SUMMARY | 2024-04-13 15:58 | XMS_ITS | Encounter Summary ---
Author Organization [facility] Address [address] [place] [address] Care Team Providers Care Drafter Castings Name Role Phone David Barreto MD Primary Care Provider [phone]- [phone] Encounter Details Date Type Department Care Team (Late st Contact Info) Description 05/22/2000 Outpatient Historical [facility] MEDICINE [address] [place] [address] 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
--- OUTSIDE RECORDS SUMMARY | 2024-04-13 15:58 | XMS_ITS | Encounter Summary ---
Author Organization [facility] Address [address] [place] [address] Care Team Providers Care Director Of Restaurants Name Role Phone David Barreto MD Primary Care Provider [phone]- [phone] Encounter Details Date Type Department Care Team (Late st Contact Info) Description 07/22/2005 Outpatient Historical [facility] MEDICINE [address] [place] [address] [place] [address] [place] [address] [phone] Social History Tobacco Use Types Packs/Day Years Used Date Smoking Tobacco: Never Assessed Sex and Gender Information Value Date Recorded Sex Assigned at Not on file Legal Sex Male 3:32 AM FINISHER DENTURE Gender Identity Not on file Sexual Orientation Not on file documented as of this encounter Plan of Treatment Not on file documented as of this encounter Visit Diagnoses Not on filedocumented in this encounter Care Teams Director Of Restaurants Relationship Specialty Start Date End Date David Barreto MD PCP - General 05/29/08 06/02/18 documented as of this encounter
--- OUTSIDE RECORDS SUMMARY | 2024-04-13 15:58 | XMS_ITS | Encounter Summary ---
Author Organization [facility] Address [address] [place] [address] Care Team Providers Care Industrial Yard Brake Coupler Name Role Phone David Barreto MD Primary Care Provider [phone]- [phone] Encounter Details Date Type Department Care Team (Late st Contact Info) Description 01/09/2005 Outpatient Historical [facility] MEDICINE [address] [place] [address] 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
--- OUTSIDE RECORDS SUMMARY | 2024-04-13 15:58 | XMS_ITS | Encounter Summary ---
Author Organization [facility] Address [address] [place] [address] Care Team Providers Care Clinical Editor Name Role Phone David Barreto MD Primary Care Provider [phone]- [phone] Encounter Details Date Type Department Care Team (Late st Contact Info) Description 05/25/2007 Outpatient Historical [facility] MEDICINE [address] [place] [address] 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
--- OUTSIDE RECORDS SUMMARY | 2024-04-13 15:58 | XMS_ITS | Encounter Summary ---
Author Organization [facility] Address [address] [place] [address] Care Team Providers Care Non Acoustic Operator Name Role Phone David Barreto MD Primary Care Provider +1- [phone] Encounter Details Date Type Department Care Team (Late st Contact Info) Description 04/17/2000 Outpatient Historical [facility] MEDICINE [address] [place] [address] 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
--- OUTSIDE RECORDS SUMMARY | 2024-04-13 15:58 | XMS_ITS | Encounter Summary ---
Author Organization [facility] Healthcare Address [address] [place] [address] Care Team Providers Care Tie Cutter Name Role Phone Dave Mchugh MD Unavailable [phone] Yulisa Gray NP Unavailable Osman Marsh MD Primary Care Provider Pedro Cedeno MD Unavailable David Townsend MD Unavailable [phone] Reason for Visit * Reason Onset Date Comments Abdominal Pain 04/13/2024 Encounter Details Date Type Department Care Team (Late st Contact Info) Description 04/13/[address] [facility] Medical Group Primary Care at [address] [address] Martine Cornejo, RN Social History Tobacco Use Types Packs/Day Years Used Date Smoking Tobacco: Former Cigarettes 2.3 54.7 0 03/16/1967 - 12/14/2021 Passive Smoke Exposure: Never Smokeless Tobacco: Never Comments: Started smoking at [...] on file Legal Sex Male 9:55 AM MISSION MANAGER Gender Identity Not on file Sexual Orientation Straight 04/21/2022 12 :23 PM MISSION MANAGER Occupation Industry Job Start Date Job End Date Retired Not on file Not on file Not on file documented as of this encounter Miscellaneous Notes * Telephone Encounter - Martine Cornejo RN - 04/13/2024 10:03 AM MISSION MANAGER [facility] Nurse Triage: [facility] 12/01/23 cc: kidney stone flare up This is a former patient of Dr. Marsh. He changed to Dr. Olmos because of [employer] insurance, but new patient appointment with Dr. Olmos is not untill 07/08/24. Patient reports vomitting with drinking anything. He is having abdominal pain above the umbilicus on the left side. He feels this is a kidney stone. Pain is constant and is an 8/10. Pain started a couple hours ago. Hx of kidney stones. He went to [facility] [place] [facility] with similar issues. He did have a CT scan done there. He was referred to a doctor in [place] and he called there multiple times and they never returned his calls, so he gave up. He had a urologist in the past (In [place] before he moved to [place] several years ago). He was given a script for Tramadol inthe past from the ED at [place] and some [facility] but it doesn't help. Provider contacted via secure chat for ED disposition consult. Recommendation from provider:No response/sent to ED Patient agrees to go to [facility] now. Reason for Disposition SEVERE abdominal pain (e.g., excruciating) Protocols used: Abdominal Pain - Fpob-Upwrg-RE ION MANAGER * Telephone Encounter - Martine Martin RN - 04/13/2024 9:33 AM MISSION MANAGER Regarding: severe kidney stone flare up ----- Message from [place] sent at 04/13/2024 9:29 AM MISSION MANAGER ----- Symptom Based Call Chief Complaint(s): severe kidney stone flare up Duration: ongoing for an hour today What type of symptom(s) is the patient experiencing? Red Flag. Is the patient concerned they are experiencing a medical emergency requiring an ambulance? No Additional Comments: Caller requesting to be advised of next step, former patient of Dr. Marsh, changed to Dr. Olmos because of [facility] insurance, new appointment 07.08.24. Does message need to be routed? Yes-Action Needed ION MANAGER documented in this encounter Plan of Treatment [...] on filedocumented in this encounter Care Teams Tie Cutter Relationship Specialty Start Date End Date Osman Marsh MD [address] [facility] [address] [place] [address] PCP - General Family Medicine 04/28/22 Dave Mchugh MD Referring Physician Cardiology 03/18/22 Yulisa Gray NP Nurse Practitioner Family Medicine 03/21/22 Pedro Cedeno MD [address] [facility] [place] [address] Consulting Physician Orthopedic Surgery 04/30/22 David Townsend MD [address] [facility] [place] [address] Surgeon Orthopedic Surgery 02/17/23 documented as of this encounter
--- OUTSIDE RECORDS SUMMARY | 2024-04-13 15:58 | XMS_ITS | Encounter Summary ---
Author Organization [facility] Address [address] [place] [address] Care Team Providers Care Lan Analyst Name Role Phone David Barreto MD Primary Care Provider [phone] Encounter Details Date Type Department Care Team (Late st Contact Info) Description 03/19/2006 Outpatient Historical [facility] MEDICINE [address] [place] [address] 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
--- OUTSIDE RECORDS SUMMARY | 2024-04-13 15:59 | XMS_ITS | Encounter Summary ---
Author Organization [facility] Address [address] [place] [address] Care Team Providers Care House Servant Name Role Phone David Barreto MD Primary Care Provider [phone] Encounter Details Date Type Department Care Team (Late st Contact Info) Description 09/08/2006 Outpatient Historical [facility] [address] 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 Gender Identity Not on file Sexual Orientation Not on file documented as of this encounter Last Filed Vital Signs Vital Sign Reading Time Taken Comments Blood Pressure 136/94 09/08/2006 3:45 PM CDT Pulse 76 09/08/2006 3:45 PM CDT Temperature 36.8 ??C (98.3 ??F) 09/08/2006 3:45 PM CD T Respiratory Rate 16 09/08/2006 3:45 PM CDT Oxygen Saturation - - Inhaled Oxygen Concentration - - Weight 105.7 kg (233 lb) 09/08/2006 3:45 PM CDT Height 175.3 cm (5' 9 ) 09/08/2006 3:45 PM CDT Body Mass Index 34.41 09/08/2006 3:45 PM CDT documented in this encounter Plan of Treatment Not on file documented as of this encounter Visit Diagnoses Not on filedocumented in this encounter Care Teams House Servant Relationship Specialty Start Date End Date David Barreto MD PCP - General 05/29/08 06/02/18 documented as of this encounter
--- OUTSIDE RECORDS SUMMARY | 2024-04-13 15:59 | XMS_ITS | Clinical Summary ---
Author Organization [facility] Address [address] [facility] [place] [address] Phone Care Team Providers Care Bander And Cellophaner Helper Machine Name Role Phone Unavailable Primary Care Provider Unavailabl e Allergies Active Allergy Reactions Criticality Noted Date Comments Codeine Swelling Low 12/12/2004 Morphine Nausea and Vomiting Low 09/21/2018 Terbinafine Hives High 07/22/2005 Medications lisinopriL (PRINIVIL) 5 mg tablet Take 5 mg by mouth daily. 02/03/20 20 Active nitroglycerin (NITROSTAT) 0.4 mg Tablet, Sublingual Place 0.4 mg under tongue see administration instructions. Active amLODIPine (NORVASC) 2.5 mg tablet Take 2.5 mg by mouth daily. 02/07/20 20 Active hyaluronate sodium (DUROLANE) 60 mg/3 mL Syringe 1 mL by See Admin Instructions route see administration instructions. 07/11/19 21 Active isosorbide mononitrate (IMDUR) 30 mg Extended Release 24 hour tablet Take 30 mg by mouth daily. 02/03/20 20 Active Active Problems Problem Noted Date Diagnosed Date OA (osteoarthritis) of knee 11/24/2008 Shingles 05/29/2008 Hyperlipidemia 05/29/2008 Tobacco use disorder 05/29/2008 Right arm pain 05/29/2008 Spasm of muscle 10/13/2006 Elevated blood pressure read ing without diagnosis of hypertension 09/08/2006 Anxiety state, unspecified 12/12/2004 Immunizations Immunization Administration Dates Next Due (TDVAX)(7 YRS UP) TETANUS AN D DIPHTHERIA TOXOIDS, ADSORBED (2 LF OF TETANUS TOXOID AND 2 LF OF DIPHTHERIA TOXOID), 0.5ML (PF), IM 03/16/2003 Influenza Vaccine Split 3+ Yrs IM 11/24/2008 Family History Medical History Relation Name Comments Healthy Brother Cancer Father pancreatic Heart Disease Mother Healthy Sister 1 Healthy Sister 2 Healthy Son 1 Healthy Son 2 Relation Name Status Comments Brother Alive Father (Age 53) COD-Pancre atic cancer Mother IHD-stent Sister 1 Alive Sister 2 Alive Son 1 Alive Son 2 Alive Social History Tobacco Use Types Packs/Day Years Used Date Smoking Tobacco: Every Day Cigarettes 0.3 38 Smokeless Tobacco: Never Alcohol Use Standard Drinks/Week Comments Not Currently 0 (1 standard drink = 0.6 oz pur e alcohol) rarely Sex and Gender Information Value Date Recorded Sex Assigned at Not on file 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 Gender Identity Not on file Sexual Orientation Not on file Last Filed Vital Signs Vital Sign Reading Time Taken Comments Blood Pressure 114/75 10/12/2020 8:54 AM CDT Pulse 57 10/12/2020 8:54 AM CDT Temperature 36.8 ??C (98.3 ??F) 04/01/2018 1:41 PM CS T Respiratory Rate 18 12/11/2008 4:00 PM CDT Oxygen Saturation 93% 10/12/2020 8:54 AM CDT Inhaled Oxygen Concentration - - Weight 108 kg (238 lb) 11/14/2021 4:08 PM CDT Height 175.3 cm (5' 9 ) 11/14/2021 4:08 PM CDT Body Mass Index 35.15 11/14/2021 4:08 PM CDT Plan of Treatment Health Maintenance Due Date Last Done Comments PNEUMOCOCCAL VACCINE 65+ YEA RS (1 of 2 - PCV) 1974 FIT-DNA Q 3 years 01/09/2000 FIT/FOBT Q 1 year 01/09/2000 Flex Sig/CT Colonography Q 5 years 01/09/2000 DTAP/TDAP/TD VACCINES (1 - Tdap) 03/17/2003 03/16/19 04 ZOSTER VACCINE (1 of 2) 2005 INFLUENZA VACCINE (#1) 2023 12/22/2017, 2008 COLORECTAL SCREENING 09/21/2028 09/21/2018 Colorectal Cancer Screening 09/21/2028 RSV VACCINE (60+ or ) (1 - 1-dose 75+ series) 2030 Insurance BCBS MEDICARE HMO
--- OUTSIDE RECORDS SUMMARY | 2024-04-13 15:59 | XMS_ITS | Encounter Summary ---
Author Organization [facility] Address [address] [place] [address] Care Team Providers Care Shadowgraph Scale Operator Name Role Phone David Barreto MD Primary Care Provider [phone] Encounter Details Date Type Department Care Team (Late st Contact Info) Description 03/19/2006 Outpatient Historical [facility] MEDICINE [address] [place] [address] 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
--- OUTSIDE RECORDS SUMMARY | 2024-04-13 15:59 | XMS_ITS | Encounter Summary ---
Author Organization [facility] Address [address] [place] [address] Care Team Providers Care Tank Wagon Driver Name Role Phone David Barreto MD Primary Care Provider [phone] Encounter Details Date Type Department Care Team (Late st Contact Info) Description 10/13/2006 Outpatient Historical [facility] [address] 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 Gender Identity Not on file Sexual Orientation Not on file documented as of this encounter Last Filed Vital Signs Vital Sign Reading Time Taken Comments Blood Pressure 134/86 10/13/2006 4:00 PM CDT Pulse 76 10/13/2006 4:00 PM CDT Temperature 36.5 ??C (97.7 ??F) 10/13/2006 4:00 PM CD T Respiratory Rate 16 10/13/2006 4:00 PM CDT Oxygen Saturation - - Inhaled Oxygen Concentration - - Weight 103 kg (227 lb) 10/13/2006 4:00 PM CDT Height 175.3 cm (5' 9 ) 10/13/2006 4:00 PM CDT Body Mass Index 33.52 10/13/2006 4:00 PM CDT documented in this encounter Plan of Treatment Not on file documented as of this encounter Visit Diagnoses Not on filedocumented in this encounter Care Teams Tank Wagon Driver Relationship Specialty Start Date End Date David Barreto MD PCP - General 05/29/08 06/02/18 documented as of this encounter
--- OUTSIDE RECORDS SUMMARY | 2024-04-13 15:59 | XMS_ITS | Encounter Summary ---
Author Organization [facility] Address [address] [facility] [address] Attn: Epic Prelude ADT [place] [address] Care Team Providers Care Application Security Engineer Name Role Phone David Barreto MD Primary Care Provider [phone] Encounter Details Date Type Department Care Team (Latest Contact Info) Description 09/08/2006 Orders Only Latonya Cole (Nathanael), VOCATIONAL SERVICES SPECIALIST Social History Tobacco Use Types Packs/Day Years Used Date Smoking Tobacco: Never Assessed Sex and Gender Information Value Date Recorded Sex Assigned at Not on file 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 BLOOD PRESSURE: 136/94. Right Arm Sitting PULSE: 76. Right Radial, Regular RESPIRATIONS: 16. TEMPERATURE: 98.3??f. Oral HEIGHT: 5ft9in. PAIN LEVEL 0. ALLERGIES: Allergies are as listed. MEDICATIONS: Medication list current. TOBACCO USE: Patient is a current tobacco user. CHIEF COMPLAINT lexapro refill HISTORY: Has been having increased stress at work and want to know if there is a higher dose he could take of the lexapro. States that in general he thinks it has been a very good medication for him,and his thinks it's a miracle drug . Today was particularly stressful and he thinks that may be contributing to the elevation in BP today. He had blood work done recently through his job and admits that his cholesterol is high. He is a smoker. HISTORY: 300.00-ANXIETY The condition has worsened. The patient's symptoms of irritability have worsened, has insomnia, voices no suicidal ideations, anxiety has worsened, muscle tension has worsened. 796.2-BLOOD PRESSURE ELEVATED W/O DX OF HTN The patient`s weight is the same. The patient is not compliant with diet. The patient is not exercising. The patient is not checking out of office blood pressures. The patient denies chest pain, shortness of breath, dyspnea on exertion, pedal edema, or headache. Currently the patient is off all medication. No recent laboratory work done. 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 EARS: Tympanic membranes shiny without retraction. Canals unremarkable. Hearing grossly normal. NOSE (AND SINUS): No abnormality of the nose or sinuses is noted. ORAL: MILD ERYTHEMATOUS OROPHARYNX WITHOUT EXUDATE. NECK/THYROID: Trachea midline. No thyroid enlargement, tenderness, [...] or tenderness. MUSCULOSKELETAL EXAM: GAIT/STATION: Normal gait. SKIN: SKIN: Warm, dry, no diaphoresis, no significant lesions, irritation, rashes or ulcers. No induration, obvious subcutaneous nodules or tightening. NEUROLOGIC: CRANIAL NERVES: senior policy associate II-XII grossly intact. PSYCHIATRIC: Judgment appropriate. Oriented. Normal memory. Mood and affect appropriate. ASSESSMENT/PLAN: 300.00-ANXIETY ASSESSMENT: The patient's anxiety has worsened. Will increase medication dosage. No laboratory workis necessary at this time. Clinical guidelines reviewed. MEDICATIONS: LEXAPRO ORAL TABLET 20 MG, 1 Every Day, 30 Dispensed, 1 Fills, status: NEW PRESCRIPTION, 09/08/2006. PATIENT EDUCATION: Questions were allowed to stated satisfaction. The importance of compliance was stressed. The patient was told that there needs to be a commitment to following our agreed upon course of action. It was noted that failing to be compliant can lead to untoward health outcomes. The benefits of exercise were reviewed at length with the patient. Risks, benefits, and possible side effects of medication(s) were reviewed with the patient. CLINICAL GUIDELINES: Anxiety clinical guidelines reviewed. 796.2-BLOOD PRESSURE ELEVATED W/O DX OF HTN ASSESSMENT: The blood pressure has worsened. Will not change medication, continue to monitor for complications. No laboratory work is necessary at this time. Clinical guidelines reviewed. The patientwas instructed to obtain outside BP readings for the next appointment. PATIENT EDUCATION: Questions were allowed to stated satisfaction. The importance of compliance was stressed. The patient was told that there needs to be a commitment to following our agreed upon course of action. It was noted that failing to be compliant can lead to untoward health outcomes. Patient given information sheet on low fat diet, patient given information sheet on no added salt diet. The benefits of exercise were reviewed at length with the patient. The risks of smoking were discussedand reviewed with the patient. CLINICAL GUIDELINES: Instructed to buy BP cuff and take reading at various time daily. Bring reading in to next appointment along with lab work that was done through his work. RETURN VISIT: Patient instructed to return in 1 month. Electronically Signed by: NITESH Galan on Friday, September 08, 2006 Electronically Signed by: Dayanna Yates MD on Friday, September 08, 2006 documented in this encounter Plan of Treatment Not on file documented as of this encounter Visit Diagnoses Not on filedocumented in this encounter Care Teams Application Security Engineer Relationship Specialty Start Date End Date David Barreto MD PCP - General 05/29/08 06/02/18 documented as of this encounter
[2024-04-13 16:06] VITALS: BP 112/86; PULSE 72; O2SAT 95
[2024-04-13 16:08] VITALS: PULSE 73
--- NOTE | 2024-04-13 17:23 | ECG_ITS ---
Test Date: 2024-04-13 17:27:47 Measurements Intervals [place] Rate: 70 P: 53 CT: 142 QRS: -22 QRSD: 120 T: -11 QT: 433 QTc: 470 Interpretive Statements SINUS RHYTHM BORDERLINE LEFT AXIS DEVIATION [QRS AXIS < -20] MODERATE INTRAVENTRICULAR CONDUCTION DELAY [110+ ms QRS DURATION] Compared to ECG 04/13/2024 14:25:54 Sinus bradycardia no longer present Electronically Signed On 04-14-2024 11:32:20 RENT AND HOUSING INVESTIGATOR by Johnny Chinchilla M.D.
[2024-04-13 17:26] LABS: Add Urine Microscopic? YES; Appearance Urine Clear (Clear); Bacteria Urine None Seen /hpf; Bilirubin Urine Negative (Negative); Blood Urine 2+ (Negative); Color Urine Yellow (Yellow); Glucose Urine UA Negative (Negative); Ketones Urine Trace mg/dL (Negative); Leukocyte Esterase Ur Negative LEU/UL (Negative); Nitrate Urine Negative (Negative); Protein Urine 1+ mg/dL (Negative); Specific Grav Ur 1.017 (1.001-1.035); Squamous Epithelial Cell Urine None Seen /hpf (Few); WBC Urine 0-5 /hpf (0-3); pH Urine 6.5 (5.0-9.0)
[2024-04-13] MEDS: HYDROmorphone HCL INJ (*CRX) 1 MG/ML SYR 0.5 MG IV PUSH (17:54)
[2024-04-13] MEDS: ACETAMINOPHEN 500 MG TABLET 1000 MG PO (17:55)
[2024-04-13] MEDS: ONDANSETRON INJ 4 MG/2 ML VIAL IV PUSH (17:55)
[2024-04-13 18:07] LABS: Troponin I < 0.012 ng/mL (0.000-0.034)
== END 2024-04-13 18:58 | disposition home or self-care (01) ==
PROVIDERS: Emergency Medicine; Physician Assistant; Emergency Provider Emergency Medicine; PCP Family Medicine
DX: N13.2 Hydronephrosis with renal and ureteral calculous obstruction (principal); R07.89 Other chest pain; I25.10 Atherosclerotic heart disease of native coronary artery without angina pectoris; Z95.1 Presence of aortocoronary bypass graft; Z87.442 Personal history of urinary calculi; K57.90 Diverticulosis of intestine, part unspecified, without perforation or abscess without bleeding; I45.9 Conduction disorder, unspecified; R00.1 Bradycardia, unspecified
CPT/HCPCS: 36415; 71046; 74176; 80053; 81001; 83690; 84484; 85025; 85610; 85730; 93005; 96374; 96375; 99284; A9270; J1171; J2405

== ENCOUNTER 2024-04-20 11:15 | Outpatient (CLI) | payer OTHER, SELFPAY ==
--- NOTE | ~2024-04-20 | XR_ITS ---
Exam: Abdomen 1V HISTORY: LT uretal stone FU COMPARISON: Reference is made to a CT examination of the abdomen and pelvis dated 04/13/2024 which dem onstrated a 5 mm stone within the proximal left ureter, approximately the level of L3 TECHNIQUE: Supine images of the abdomen FINDINGS: Bowel gas pattern is non-obstructive. There is no free air or deep sulci. The 5.4 mm calculus is no longer identified along the projected course of the proximal left ureter. I nitially, this focus was present at the level of L3. Lung bases are unremarkable. Degenerative disease within the lumbosacral spine. Fecal stasis within the colon. Fecal stasis distends the rectum suggesting fecal impaction. IMPRESSION: The 5.4 mm calculus is no longer identified along the expected course of the left ureter, however its possible that fecal stasis partially obscures the course of the left ureter in the pelvis. Reviewed, dictated and finalized at location A. IS COUNSELOR IMPRESSION: The 5.4 mm calculus is no longer identified along the expected course of the le ft ureter, however its possible that fecal stasis partially obscures the course of the left ureter in the pelvis.
--- OUTSIDE RECORDS SUMMARY | 2024-04-20 12:57 | XMS_ITS | Encounter Summary ---
Author Organization [facility] Address [address] [place] [address] Care Team Providers Care Supervisor Liquid Yeast Name Role Phone David Barreto MD Primary Care Provider [phone]- [phone] Encounter Details Date Type Department Care Team (Late st Contact Info) Description 03/19/2006 Outpatient Historical [facility] MEDICINE [address] [place] [address] 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
--- OUTSIDE RECORDS SUMMARY | 2024-04-20 12:57 | XMS_ITS | Encounter Summary ---
Author Organization [facility] Address [address] [place] [address] Care Team Providers Care Manager Animation Name Role Phone David Barreto MD Primary Care Provider [phone]- [phone] Encounter Details Date Type Department Care Team (Late st Contact Info) Description 12/12/2004 Outpatient Historical [facility] MEDICINE [address] [place] [address] 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
--- OUTSIDE RECORDS SUMMARY | 2024-04-20 12:57 | XMS_ITS | Encounter Summary ---
Author Organization [facility] Address [address] [place] [address] Care Team Providers Care Documentation Writer Name Role Phone David Barreto MD Primary Care Provider [phone] Encounter Details Date Type Department Care Team (Late st Contact Info) Description 10/01/2004 Outpatient Historical [facility] [address] 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
--- OUTSIDE RECORDS SUMMARY | 2024-04-20 12:57 | XMS_ITS | Encounter Summary ---
Author Organization [facility] Address [address] [place] [address] Care Team Providers Care Sander Operator Name Role Phone David Barreto MD Primary Care Provider [phone] Encounter Details Date Type Department Care Team (Late st Contact Info) Description 06/23/2001 Outpatient Historical [facility] [address] [place] [address] [place] [address] [place] [address] [phone] Social History Tobacco Use Types Packs/Day Years Used Date Smoking Tobacco: Never Assessed Sex and Gender Information Value Date Recorded Sex Assigned at Not on file Legal Sex Male 3:32 AM SHAPE HAND Gender Identity Not on file Sexual Orientation Not on file documented as of this encounter Plan of Treatment Not on file documented as of this encounter Visit Diagnoses Not on filedocumented in this encounter Care Teams Sander Operator Relationship Specialty Start Date End Date David Barreto MD PCP - General 05/29/08 06/02/18 documented as of this encounter
--- OUTSIDE RECORDS SUMMARY | 2024-04-20 12:57 | XMS_ITS | Encounter Summary ---
Author Organization [facility] Address [address] [place] [address] Care Team Providers Care Poultry Buyer Name Role Phone David Barreto MD Primary Care Provider [phone] Encounter Details Date Type Department Care Team (Latest Contact Info) Description 11/08/2008 Outpatient Historical [facility] [address] David Barreto MD [address] [place] [address] Special Screening for Malignant Neoplasm of Prostate Social History Tobacco Use Types Packs/Day Years Used Date Smoking Tobacco: Every Day Cigarettes 1 38 Alcohol Use Standard Drinks/Week Comments Yes 0 (1 standard drink = 0.6 oz pur e alcohol) rarely Sex and Gender Information Value Date Recorded Sex Assigned at Not on file 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
--- OUTSIDE RECORDS SUMMARY | 2024-04-20 12:57 | XMS_ITS | Clinical Summary ---
Author Organization [facility] Address [address] [place] [address] Care Team Providers Care Drug Room Operator Name Role Phone Dave Mchugh MD Unavailable [phone] Yulisa Gray NP Unavailable Osman Marsh MD Primary Care Provider Pedro Cedeno MD Unavailable David Townsend MD Unavailable Allergies Active Allergy [...] 05/18/2023 Assessment & Plan (05/18/2023 9:41 AM CRADLE SLIDE MAKER): I have reviewed the hospital record, medications, [...] (05/05/2022): Added automatically from request for surgery [id number] Hypertension, essential 08/12/2019 Assessment & Plan (04/28/2022 12:11 PM CRADLE SLIDE MAKER): BP stable in office today Renal function stable Continues current regimen Assessment & Plan (03/18/2022 12:16 PM CRADLE SLIDE MAKER): - chronic condition, stable status - Lisinopril 5 mg daily, Imdur 30 mg daily, Amlodipine 2.5 mg daily - currently managed by his meal packer - continue current management Assessment & Plan [...] recommended Assessment & Plan (04/28/2022 12:12 PM CRADLE SLIDE MAKER): Healthy, low carbohydrate lifestyle and exercise for 150min/week recommended Assessment & Plan (03/18/2022 12:21 PM CRADLE SLIDE MAKER): Wt Readings from Last 3 Encounters: 03/18/22 [...] 018 Assessment & Plan (04/28/2022 12:14 PM CRADLE SLIDE MAKER): Scheduled LTKA for 05/14/[address] Cedeno. Contingent on CXR results, patient deemed low to moderate risk for adverse reaction to anesthesia from PCP side, however this is not a cardiology clearance. Patient will need clearance from his meal packer. Per meal packer's most recent note, patient likely will need stress test prior to the surgery. Assessment & Plan (03/18/2022 12:22 PM CRADLE SLIDE MAKER): - scheduled or Left TKA, will need [...] the official read is pending in the station baggage agent is got a higher ejection fraction. We [...] 2012 Assessment & Plan (04/28/2022 12:10 PM CRADLE SLIDE MAKER): CAD, stable Hx four-vessel CABG 01/07/13 Follows [...] artery Assessment & Plan (04/28/2022 12:10 PM CRADLE SLIDE MAKER): CAD, stable Hx four-vessel CABG 01/07/13 [address] CardioDr Mchugh Continues current medication regimen. Assessment & Plan (03/18/2022 1:14 PM CRADLE SLIDE MAKER): - chronic, stable - managed by his Bottom Buffer Dr. Mchugh - coronary artery disease status [...] 12/10/2012 Assessment & Plan (04/28/2022 12:12 PM CRADLE SLIDE MAKER): Lipid panel stable, hx CAD Continues Atorvastatin 40 mg daily and Vascepa 2g BID Continues follow up with Bottom Buffer. Assessment & Plan (03/18/2022 12:17 PM CRADLE SLIDE MAKER): - chronic condition, stable status - has [...] 05/29/2008 Assessment & Plan (03/18/2022 12:21 PM CRADLE SLIDE MAKER): Social History Tobacco Use Smoking Status Former [...] pain -Will plan to see pt in [facility] for knee injections -Could consider [...] Date Type Department Care Team Description 04/13/2024 Orders Only [facility] Health Information Management [address] [place], [place] [id number] Alexis Olmos MD 04/13/2024 Nurse Triage [facility] Primary Care at [address] [address] Martine Cornejo RN 02/29/2024 Telephone [facility] Primary Care at [address] [address] Osman Marsh MD Appointment Request from Last 3 Months Immunizations Name Administration Dates Next Due Influenza, Quadrivalent, Spl it, Preservative Free, Intramuscular 12/22/2017 Influenza, Trivalent, IM (MDV) 11/24/2008 Influenza, Unspecified 05/18/2023(Deferr ed: Patient Refused),11/12/2022(Deferred: Patient Refused),03/18/2022,03/18/2021 RSV Vaccine, Pref, Recombina nt, Subunit, Adjuvanted, PF, IM (Arexvy) 03/30/2023 Td, adsorbed 03/16/2003 Tdap 03/30/2023 Surgical History Surgery Date Site/Laterality Comments DE RPR ANOM CORONARY ARTERY PULM ART ORIGIN [...] you are drinking? 1 or 2 05/04/2023 Frequency of Binge Drinking Not on file 04/16 PHQ-2 Answer Date Recorded PHQ-2 Total Score [...] on file Legal Sex Male 9:55 AM CRADLE SLIDE MAKER Gender Identity Not on file Sexual Orientation Straight 04/21/2022 12 :23 PM CRADLE SLIDE MAKER Occupation Industry Job Start Date Job End [...] as needed Medical Devices Implanted Type Area Computerized Table Cutter Device Identifier Shelf Expiration Date Model / Serial / Lot [employer] Triathlon Knee 5 Baseplate Tibial Tritanium 5536-B-500 - Sna - [id number] Implanted:Qty: 1 on 05/04/2023 by Ariel Huffman MD at [facility] Other - see comments Right: Knee [employer] [id number] 02/14/2028 5536-B-5 00 / NA / [id number] Description:Implant Pause Pe rformed [employer] Triathlon Cruciate Retain Bead Knee Right 5 Component Femoral Pa 5517-F-502 - Sna - [id number] Implanted:Qty: 1 on 05/04/2023 by Ariel Huffman MD at [facility] Other - see comments Right: Knee [employer] [id number] 03/11/2028 5517-F-5 02 / NA / [id number] Description:Implant Pause Pe rformed [employer] Insert Tibial Triathlon 5 H11mm Knee Bearing Condylar Stabilize Sterile 3224-U-367-E - Sna - [id number] Implanted:Qty: 1 on 05/04/2023 by Ariel Huffman MD at [facility] Other - see comments Right: Knee [employer] [id number] 12/07/2027 5531-G-5 11-E / NA / [id number] Description:Implant Pause Pe rformed [employer] Triathlon Knee 5 Baseplate Tibial Tritanium 5536-B-500 - [id number] Implanted:Qty: 1 on 05/14/2022 by Emir Germain MD at [facility] Left: Knee [employer] [id number] 03/05/2027 5536-B-5 00 / / [id number] [employer] Triathlon Cruciate Retain Bead Knee Left 6 Component Femoral Pa 5517-F-601 - [id number] Implanted:Qty: 1 on 05/14/2022 by Emir Germain MD at [facility] Left: Knee [employer] [id number] 04/21/2027 5517-F-6 01 / / [id number] [employer] Insert Tibial Triathlon 5 H9mm Knee Bearing Condylar Stabilize Sterile 9340-Y-203-E - [id number] Implanted:Qty: 1 on 05/14/2022 by Emir Germain MD at [facility] Left: Knee [employer] [id number] 02/19/2027 5531-G-5 09-E / / [id number] Explanted Type Area Computerized Table Cutter Device Identifier Shelf Expiration Date Model / Serial / Lot [employer] 4mm 110mm Pin Fixation Sterile 530729 - [id number] Explanted:Qty: 1 on 05/04/2023 by Ariel Huffman MD at [facility] Pin Right: Knee [employer] [id number] 11/05/2027 181674 / NA / [id number] Description:For provisional fixation only; Not intended for implant [employer] 4mm 140mm Knee Straight Pin Fixation Sterile 317537 - [id number] Explanted:Qty: 1 on 05/04/2023 by Ariel Huffman MD at [facility] Pin Right: Knee [employer] [id number] 08/23/2027 250201 / NA / [id number] Description:For provisional fixation only; Not intended for implant [employer] 4mm 140mm Knee Straight Pin Fixation Sterile 324784 - [id number] Explanted:Qty: 1 on 05/14/2022 by Emir Germain MD at [facility] Left: Knee [employer] [id number] / / Procedures Procedure Name Priority Date/Time Associated Diagnosis Comments SCAN - RADIOLOGY/IMAGING 04/13/2024 PSA SCREEN Routine 12/01/2023 1:35 PM CDT Benign prostatic hyperplasia with urinary retention HEPATITIS C ANTIBODY Routine 04/23/2023 8:37 AM CRADLE SLIDE MAKER Encounter for hepatitis C screening test for low risk patient COLONOSCOPY 12/23/2022 11:[address] ABDOMEN PELVIS W CONTRAST ED 01/10/2021 11:22 AM CDT from Last 3 Months or Most Recently Relevant to Health Maintenance Results * SCAN - RADIOLOGY/IMAGING (04/13/2024) Anatomical Region Laterality Modality Other us Alexis Olmos MD Edited Result - Final * PSA screen (12/01/2023 1:35 PM CDT) [...] BLOOD ORDERABLES Final Result Performing Organization Address City/State/[facility] de Phone Number [facility] [place]ACK [address] [place] [address] * Hepatitis C antibody Blood (04/23/2023 8:37 AM CRADLE SLIDE MAKER) Hep C Ab Nonreactive Nonreactive DEMSONDROXANA WAYNE Comment: Interpretive Data Nonreactive: Antibodies to HCV [...] revised on 2019. Blood 04/23/2023 8:37 AM CRADLE SLIDE MAKER 04/23/2023 3:59 PM CRADLE SLIDE MAKER Yulisa Gray NP LAB MICROBIOLOGY - GENERAL ORDER KATE Final Result Performing Organization Address [facility] de Phone Number [place]ACK [address] [place] [address] * COLONOSCOPY (12/23/2022 11:24 AM CDT) Anatomical Region Laterality Modality Other Narrative Procedure Note Kang Cai MD - 12/23/2022 11:24 AM CDT [facility] Patient Name: Douglas Malone Procedure Date: 12/23/2022 11:24AM Date of : 1955 Admit Type: Outpatient Age: 67 Gender: Male Attending MD: Kang Cai M.D. Room: [facility] ENDOSCOPY ROOM 8 Note Status: Finalized [...] was passed under direct vision.The PCF H190L 2203-115 endoscope was introduced through the anus and [...] On: 12/23/2022 11:24 AM Recognized by the [place] for promoting quality [...] Zbigniew Minor M.D. Kang Ty Jr., MD IM CT PROCEDURES Final Result from Last 3 Months or Most Recently Relevant to Health Maintenance Insurance HEALTHCARE [facility] HEALTHCARE [facility] HEALTHCARE Advance Directives For more information, please contact: [phone] * Full Code (Latest Code Status on File) Date Activated Date Inactivated Comments 05/04/2023 12:41 PM 05/05/2023 2:10 PM * Full Code Date Activated Date Inactivated Comments 12/23/2022 10:03 AM 12/23/2022 5:03 PM * Full Code Date Activated Date Inactivated Comments 05/14/2022 3:12 PM 05/15/2022 2:08 PM * Full Code Date Activated Date Inactivated Comments 09/21/2018 2:31 PM 09/21/2018 9:18 PM Care Teams Drug Room Operator Relationship Specialty Start Date End Date Osman Marsh MD [address] [facility] [address] [place] [address] PCP - General Family Medicine 04/28/22 Dave Mchuhg MD Referring Physician Cardiology 03/18/22 Yulisa Gray NP Nurse Practitioner Family Medicine 03/21/22 Pedro Cedeno MD [address] [address] Consulting Physician Orthopedic Surgery 04/30/22 David Townsend MD [address] [facility] [address] [place] [address] Surgeon Orthopedic Surgery 02/17/23
--- OUTSIDE RECORDS SUMMARY | 2024-04-20 12:57 | XMS_ITS | Referral Summary ---
Author Organization [facility] Address [address] [place] [address] Care Team Providers Care Ball Point Splitter Name Role Phone Dave Mchugh MD Unavailable [phone] Yulisa Gray NP Unavailable Osman Marsh MD Primary Care Provider Pedro Cedeno MD Unavailable [phone] David Townsend MD Unavailable [phone] Encounters Date Type Department Care Team Description 04/13/2024 Orders Only [facility] Health Information Management [address] [place] [address] Alexis Olmos MD 04/13/2024 Nurse Triage [facility] Medical [facility] Primary Care at [address] [address] Martine Cornejo RN 02/29/2024 Telephone [facility] Primary Care at [address] [address] Osman Marsh MD Appointment Request from Last 3 Months Allergies Active Allergy [...] 05/18/2023 Assessment & Plan (05/18/2023 9:41 AM DIRECTOR TELECOMMUNICATIONS): I have reviewed the hospital record, medications, [...] (05/05/2022): Added automatically from request for surgery [id number] Hypertension, essential 08/12/2019 Assessment & Plan (04/28/2022 12:11 PM DIRECTOR TELECOMMUNICATIONS): BP stable in office today Renal function stable Continues current regimen Assessment & Plan (03/18/2022 12:16 PM DIRECTOR TELECOMMUNICATIONS): - chronic condition, stable status - Lisinopril 5 mg daily, Imdur 30 mg daily, Amlodipine 2.5 mg daily - currently managed by his terminal block assembler - continue current management Assessment & Plan [...] recommended Assessment & Plan (04/28/2022 12:12 PM DIRECTOR TELECOMMUNICATIONS): Healthy, low carbohydrate lifestyle and exercise for 150min/week recommended Assessment & Plan (03/18/2022 12:21 PM DIRECTOR TELECOMMUNICATIONS): Wt Readings from Last 3 Encounters: 03/18/22 [...] 018 Assessment & Plan (04/28/2022 12:14 PM DIRECTOR TELECOMMUNICATIONS): Scheduled LTKA for 05/14/[address] Cedeno. Contingent on CXR results, patient deemed low to moderate risk for adverse reaction to anesthesia from PCP side, however this is not a cardiology clearance. Patient will need clearance from his terminal block assembler. Per terminal block assembler's most recent note, patient likely will need stress test prior to the surgery. Assessment & Plan (03/18/2022 12:22 PM DIRECTOR TELECOMMUNICATIONS): - scheduled or Left TKA, will need [...] the official read is pending in the web operations lead is got a higher ejection fraction. We [...] -Ischemic cardiomyopathy w/ LVEF of 48% in 2016 (was 45% in 2013) -s/p CABG in [...] 2012 Assessment & Plan (04/28/2022 12:10 PM DIRECTOR TELECOMMUNICATIONS): CAD, stable Hx four-vessel CABG 01/07/13 Follows [...] artery Assessment & Plan (04/28/2022 12:10 PM DIRECTOR TELECOMMUNICATIONS): CAD, stable Hx four-vessel CABG 01/07/[address] Jeison García Continues current medication regimen. Assessment & Plan (03/18/2022 1:14 PM DIRECTOR TELECOMMUNICATIONS): - chronic, stable - managed by his Apartment Maintenance Worker Dr. Jeison - coronary artery disease status post coronary [...] 12/10/2012 Assessment & Plan (04/28/2022 12:12 PM DIRECTOR TELECOMMUNICATIONS): Lipid panel stable, hx CAD Continues Atorvastatin 40 mg daily and Vascepa 2g BID Continues follow up with Apartment Maintenance Worker. Assessment & Plan (03/18/2022 12:17 PM DIRECTOR TELECOMMUNICATIONS): - chronic condition, stable status - has [...] 05/29/2008 Assessment & Plan (03/18/2022 12:21 PM DIRECTOR TELECOMMUNICATIONS): Social History Tobacco Use Smoking Status Former [...] pain -Will plan to see pt in [facility] for knee injections -Could consider [...] restarted when his got sick in 2015- Alcohol Use Standard Drinks/Week Comments Not Currently [...] on file Legal Sex Male 9:55 AM DIRECTOR TELECOMMUNICATIONS Gender Identity Not on file Sexual Orientation Straight 04/21/2022 12 :23 PM DIRECTOR TELECOMMUNICATIONS Occupation Industry Job Start Date Job End [...] as needed Medical Devices Implanted Type Area Traverse Rod Assembler Device Identifier Shelf Expiration Date Model / Serial / Lot [employer] Triathlon Knee 5 Baseplate Tibial Tritanium 5536-B-500 - Sna - [id number] Implanted:Qty: 1 on 05/04/2023 by Ariel Huffman MD at [facility] Other - see comments Right: Knee [employer] [id number] 02/14/2028 5536-B-5 00 / NA / [id number] Description:Implant Pause Pe rformed [employer] Triathlon Cruciate Retain Bead Knee Right 5 Component Femoral Pa 5517-F-502 - Sna - [id number] Implanted:Qty: 1 on 05/04/2023 by Ariel Huffman MD at [facility] Other - see comments Right: Knee [employer] [id number] 03/11/2028 5517-F-5 / / [id number] Description:Implant Pause Pe rformed [employer] Insert Tibial Triathlon 5 H11mm Knee Bearing Condylar Stabilize Sterile 7934-T-434-E - Sna - [id number] Implanted:Qty: 1 on 05/04/2023 by Ariel Huffman MD at [facility] Other - see comments Right: Knee [employer] [id number] 12/07/2027 5531-G-5 11-E / NA / [id number] Description:Implant Pause Pe rformed [employer] Triathlon Knee 5 Baseplate Tibial Tritanium 5536-B-500 - [id number] Implanted:Qty: 1 on 05/14/2022 by Emir Germain MD at [facility] Left: Knee [employer] [id number] 03/05/2027 5536-B-5 00 / / [id number] [employer] Triathlon Cruciate Retain Bead Knee Left 6 Component Femoral Pa 5517-F-601 - [id number] Implanted:Qty: 1 on 05/14/2022 by Emir Germain MD at [facility] Left: Knee [employer] [id number] 04/21/2027 5517-F-6 01 / / [id number] [employer] Insert Tibial Triathlon 5 H9mm Knee Bearing Condylar Stabilize Sterile 0127-S-757-E - [id number] Implanted:Qty: 1 on 05/14/2022 by Emir Germain MD at [facility] Left: Knee [employer] [id number] 02/19/2027 5531-G-5 09-E / / [id number] Explanted Type Area Traverse Rod Assembler Device Identifier Shelf Expiration Date Model / Serial / Lot [employer] 4mm 110mm Pin Fixation Sterile 431449 - [id number] Explanted:Qty: 1 on 05/04/2023 by Ariel Huffman MD at [facility] Pin Right: Knee [employer] [id number] 11/05/2027 701633 / NA / [id number] Description:For provisional fixation only; Not intended for implant [employer] 4mm 140mm Knee Straight Pin Fixation Sterile 625204 - [id number] Explanted:Qty: 1 on 05/04/2023 by Ariel Huffman MD at [facility] Pin Right: Knee [employer] [id number] 08/23/2027 493776 / NA / [id number] Description:For provisional fixation only; Not intended for implant [employer] 4mm 140mm Knee Straight Pin Fixation Sterile 159900 - [id number] Explanted:Qty: 1 on 05/14/2022 by Emir Germain MD at [facility] Left: Knee [employer] [id number] / / Procedures Procedure Name Priority Date/Time Associated Diagnosis Comments SCAN - RADIOLOGY/IMAGING 04/13/2024 PSA SCREEN Routine 12/01/2023 1:35 PM CDT Benign prostatic hyperplasia with urinary retention HEPATITIS C ANTIBODY Routine 04/23/2023 8:37 AM DIRECTOR TELECOMMUNICATIONS Encounter for hepatitis C screening test for [...] BLOOD ORDERABLES Final Result Performing Organization Address City/State/[facility] Phone Number [facility] [address] [address] [place] [place] [address] * Hepatitis C antibody Blood (04/23/2023 8:37 AM DIRECTOR TELECOMMUNICATIONS) Hep C Ab Nonreactive Nonreactive PASQUALE BLACK [...] revised on 2019. Blood 04/23/2023 8:37 AM DIRECTOR TELECOMMUNICATIONS 04/23/2023 3:59 PM DIRECTOR TELECOMMUNICATIONS us Yulisa Gray NP LAB MICROBIOLOGY - GENERAL ORDER KATE Final Result [place] [address] [place] [address] * COLONOSCOPY (12/23/2022 11:24 AM CDT) Anatomical Region Laterality Modality Other Narrative Procedure Note Kang Cai MD - 12/23/2022 11:24 AM CDT GI ENDOSCOPY [facility] Patient Name: Douglas Malone Procedure Date: 12/23/2022 11:24AM Date of : 1955 Admit Type: Outpatient Age: 67 Gender: Male Attending MD: Kang Cai M.D. Room: [facility] ENDOSCOPY ROOM 8 Note Status: Finalized Procedure: [...] was passed under direct vision.The PCF H190L 2202-635 endoscope was introduced through the anus and [...] On: 12/23/2022 11:24 AM Recognized by the [place] [employer] Gastro[employer] for promoting quality [...] to Health Maintenance Insurance HEALTHCARE [facility] Advance Directives For more information, please contact: [phone] * Full Code (Latest Code Status on File) Date Activated Date Inactivated Comments 05/04/2023 12:41 PM 05/05/2023 2:10 PM * Full Code Date Activated Date Inactivated Comments 12/23/2022 10:03 AM 12/23/2022 5:03 PM * Full Code Date Activated Date Inactivated Comments 05/14/2022 3:12 PM 05/15/2022 2:08 PM * Full Code Date Activated Date Inactivated Comments 09/21/2018 2:31 PM 09/21/2018 9:18 PM Care Teams Ball Point Splitter Relationship Specialty Start Date End Date Osman Marsh MD [address] [facility] [address] [place] [address] PCP - General Family Medicine 04/28/22 Dave Mchugh MD Referring Physician Cardiology 03/18/22 Yulisa Gray NP Nurse Practitioner Family Medicine 03/21/22 Pedro Cedeno MD [address] [facility] [place] [address] Consulting Physician Orthopedic Surgery 04/30/22 David Townsend MD [address] [facility] [place] [address] Surgeon Orthopedic Surgery 02/17/23
--- OUTSIDE RECORDS SUMMARY | 2024-04-20 12:57 | XMS_ITS | Clinical Summary ---
Author Organization [facility] Address [address] [facility] [place] [address] Phone Care Team Providers Care Lot Worker Name Role Phone Unavailable Primary Care Provider [...] on file Legal Sex Male 3:32 AM RADIO INSTALLER Gender Identity Not on file Sexual [...]
--- OUTSIDE RECORDS SUMMARY | 2024-04-20 12:57 | XMS_ITS | Encounter Summary ---
Author Organization [facility] Address [address] [place] [address] Care Team Providers Care Tie Cutter Name Role Phone David Barreto MD Primary Care Provider +1- [phone] Encounter Details Date Type Department Care Team (Late st Contact Info) Description 10/13/2006 Outpatient Historical [facility] [address] [place] [phone] [place] [address] [place] [employer] [address] [place] [phone] Social History Tobacco Use Types Packs/Day Years Used Date Smoking Tobacco: Never Assessed Sex and Gender Information Value Date Recorded Sex Assigned at Not on file Legal Sex Male 3:32 AM DEEP FAT COOK FRY Gender Identity Not on file Sexual Orientation [...] Cutter Relationship Specialty Start Date End Date David Barreto MD PCP - General 05/29/08 06/02/18 documented as of this encounter
--- OUTSIDE RECORDS SUMMARY | 2024-04-20 12:57 | XMS_ITS | Encounter Summary ---
Author Organization [facility] Address [address] [place] [address] Care Team Providers Care Shipping Team Leader Name Role Phone David Barreto MD Primary Care Provider +1- [phone] Encounter Details Date Type Department Care Team (Late st Contact Info) Description 09/08/2006 Outpatient Historical [facility] [address] 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
--- OUTSIDE RECORDS SUMMARY | 2024-04-20 12:57 | XMS_ITS | Encounter Summary ---
Author Organization [facility] Address [address] [place] [address] Care Team Providers Care Vacuum Extractor Operator Name Role Phone David Barreto MD Primary Care Provider +1- [phone] Encounter Details Date Type Department Care Team (Late st Contact Info) Description 04/17/2000 Outpatient Historical [facility] [address] [place] [address] [place] [address] [place] [address] [phone] Social History Tobacco Use Types Packs/Day Years Used Date Smoking Tobacco: Never Assessed Sex and Gender Information Value Date Recorded Sex Assigned at Not on file Legal Sex Male 3:32 AM INSURANCE SERVICE REPRESENTATIVE Gender Identity Not on file Sexual Orientation Not on file documented as of this encounter Plan of Treatment Not on file documented as of this encounter Visit Diagnoses Not on filedocumented in this encounter Care Teams Vacuum Extractor Operator Relationship Specialty Start Date End Date David Barreto MD PCP - General 05/29/08 06/02/18 documented as of this encounter
--- OUTSIDE RECORDS SUMMARY | 2024-04-20 12:57 | XMS_ITS | Encounter Summary ---
Author Organization [facility] Address [address] [facility] Attn: Epic Prelude ADT [place] [address] Care Team Providers Care Facilities Planner Name Role Phone David Barreto MD Primary Care Provider +1- [phone] Encounter Details Date Type Department Care Team (Latest Contact Info) Description 09/08/2006 Orders Only Latonya Cole (Nathanael), VIBRATOR OPERATOR Social History Tobacco Use Types Packs/Day Years Used Date Smoking Tobacco: Never Assessed Sex and Gender Information Value Date Recorded Sex Assigned at Not on file Legal Sex Male 3:32 AM HOSE FINISHER Gender Identity Not on file Sexual Orientation Not on file documented as of this encounter Progress Notes * Latonya oCle - 08/04/2007 5:50 PM CDT NURSE NAME: [...] subcutaneous nodules or tightening. NEUROLOGIC: CRANIAL NERVES: interpreter deaf II-XII grossly intact. PSYCHIATRIC: Judgment appropriate. Oriented. [...] on filedocumented in this encounter Care Teams Facilities Planner Relationship Specialty Start Date End Date David Barreto MD PCP - General 05/29/08 06/02/18 documented as of this encounter
--- OUTSIDE RECORDS SUMMARY | 2024-04-20 12:57 | XMS_ITS | Encounter Summary ---
Author Organization [facility] Address [address] [place] [address] Care Team Providers Care Glove Machine Operator Name Role Phone David Barreto MD Primary Care Provider +1- [phone] Encounter Details Date Type Department Care Team (Late st Contact Info) Description 05/22/2000 Outpatient Historical [facility] [address] [place] [address] [place] [phone] [place] [address] [phone] Social History Tobacco Use Types Packs/Day Years Used Date Smoking Tobacco: Never Assessed Sex and Gender Information Value Date Recorded Sex Assigned at Not on file Legal Sex Male 3:32 AM MEDICAL ECONOMICS CONSULTANT Gender Identity Not on file Sexual Orientation Not on file documented as of this encounter Plan of Treatment Not on file documented as of this encounter Visit Diagnoses Not on filedocumented in this encounter Care Teams Glove Machine Operator Relationship Specialty Start Date End Date David Barreto MD PCP - General 05/29/08 06/02/18 documented as of this encounter
--- OUTSIDE RECORDS SUMMARY | 2024-04-20 12:57 | XMS_ITS | Encounter Summary ---
Author Organization [facility] Address [address] [place] [address] Care Team Providers Care Kardex Clerk Name Role Phone David Barreto MD Primary Care Provider +1- [phone] Encounter Details Date Type Department Care Team (Late st Contact Info) Description 05/25/2007 Orders Only [facility] [address] 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 NEUROLOGIC: CRANIAL NERVES: top lift trimmer II-XII grossly intact. PSYCHIATRIC: Judgment appropriate. Oriented. [...] on filedocumented in this encounter Care Teams Kardex Clerk Relationship Specialty Start Date End Date David Barreto MD PCP - General 05/29/08 06/02/18 documented as of this encounter
--- OUTSIDE RECORDS SUMMARY | 2024-04-20 12:57 | XMS_ITS | Encounter Summary ---
Author Organization [facility] Address [address] [place] [address] Care Team Providers Care Facepiece Line Supervisor Name Role Phone David Barreto MD Primary Care Provider +1- [phone] Encounter Details Date Type Department Care Team (Late st Contact Info) Description 01/09/2005 Outpatient Historical [facility] [address] [place] [address] 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
--- OUTSIDE RECORDS SUMMARY | 2024-04-20 12:57 | XMS_ITS | Encounter Summary ---
Author Organization [facility] Address [address] [place] [address] Care Team Providers Care Global Logistics Analyst Name Role Phone David Barreto MD Primary Care Provider +1- [phone] Encounter Details Date Type Department Care Team (Late st Contact Info) Description 03/19/2006 Outpatient Historical [facility] [address] [place] [address] 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
--- OUTSIDE RECORDS SUMMARY | 2024-04-20 12:57 | XMS_ITS | Encounter Summary ---
Author Organization [employer] Address [address] [place] [address] Care Team Providers Care Group Leader Wafer Polishing Name Role Phone David Barreto MD Primary Care Provider +1- [phone] Encounter Details Date Type Department Care Team (Late st Contact Info) Description 05/25/2007 Outpatient Historical [facility] [address] 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
--- OUTSIDE RECORDS SUMMARY | 2024-04-20 12:57 | XMS_ITS | Encounter Summary ---
Author Organization [facility] Address [address] [place] [address] Care Team Providers Care Drafter Heating And Ventilating Name Role Phone David Barreto MD Primary Care Provider +1- [phone] Encounter Details Date Type Department Care Team (Late st Contact Info) Description 05/25/2007 Outpatient Historical [facility] [address] [place] [address] 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
--- OUTSIDE RECORDS SUMMARY | 2024-04-20 12:57 | XMS_ITS | Encounter Summary ---
Author Organization [facility] Address [address] [place] [address] Care Team Providers Care Hanging Flags Decorator Name Role Phone David Barreto MD Primary Care Provider +1- [phone] Encounter Details Date Type Department Care Team (Late st Contact Info) Description 10/13/2006 Orders Only [facility] [address] [place] [address] 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 NEUROLOGIC: CRANIAL NERVES: cylinder honer II-XII grossly intact. DEEP TENDON REFLEXES: Deep [...] on filedocumented in this encounter Care Teams Hanging Flags Decorator Relationship Specialty Start Date End Date David Barreto MD PCP - General 05/29/08 06/02/18 documented as of this encounter
--- OUTSIDE RECORDS SUMMARY | 2024-04-20 12:57 | XMS_ITS | Encounter Summary ---
Author Organization [facility] Address [address] [place] [address] Care Team Providers Care Garage Worker Name Role Phone David Barreto MD Primary Care Provider +1- [phone] Encounter Details Date Type Department Care Team (Late st Contact Info) Description 07/22/2005 Outpatient Historical [facility] [address] [place] [address] 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
--- OUTSIDE RECORDS SUMMARY | 2024-04-20 12:57 | XMS_ITS | Encounter Summary ---
Author Organization [facility] Address [address] [place] [address] Care Team Providers Care Tool Sharpener Name Role Phone David Barreto MD Primary Care Provider +1- [phone] Encounter Details Date Type Department Care Team (Late st Contact Info) Description 07/22/2005 Outpatient Historical [facility] [address] [place] [address] 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
== END 2024-04-20 11:16 | disposition home or self-care (01) ==
PROVIDERS: PCP Family Medicine; Visit Provider Urology
DX: N20.1 Calculus of ureter (principal)
CPT/HCPCS: 74018

== ENCOUNTER 2024-05-03 10:28 | Outpatient (CLI) | payer OTHER, SELFPAY ==
--- NOTE | ~2024-05-03 | CT_ITS ---
EXAMINATION: CT abdomen pelvis wo con DATE: 05/03/2024 10:48 INDICATION: Left ureteral stone TECHNIQUE: Computed tomography (CT) of the abdomen and pelvis was performed without intravenous contr ast. Automated exposure control and iterative reconstruction technique were employed. The dose-length product was 1099.94 mGy-cm. COMPARISON: CT dated 04/13/2024 and 03/08/2024 FINDINGS: Mild discoid atelectasis in the lingula and bilateral lower lobes. Heart size normal. Atherosclerotic coronary artery calcific lesions with mediastinum which could be related to prior coronary artery by pass grafting. No pericardial or pleural effusion. Small sliding-type hiatal hernia. Cholecystectomy clips the gallbladder fossa. Liver, spleen, pancreas and bilateral adrenal glands are normal. There are couple left renal cysts measuring up to 1.2 cm. Bilateral nonobstructing nephrolit hiasis with 2 stones measuring up to 4 mm in the right kidney and a 4 mm stone at the lower pole the left kidney. The stone in the left kidney likely represents repositioning of the previously seen obst ructing stone at the left greater pelvic junction which is no longer present at this location. No ure teral stones or hydronephrosis. Bladder is normal. Mild prostatomegaly. Extensive diverticulitis thro ughout the colon relatively sparing the distal sigmoid colon without adjacent comparison to suggest d iverticulitis. Small bowel and appendix are normal. No free intraperitoneal gas or fluid. No patholog ically enlarged abdominal or pelvic lymphadenopathy. There is calcified atherosclerosis of the aorta and many of the other arteries. Mild lumbar dextroscoliosis with severe spondylosis. Chronic mild lik aminta physiologic anterior wedging at T11 and T12. IMPRESSION: 1. Nonobstructing bilateral nephrolithiasis. The previously seen stone at the left ureteropelvic junc tion has refluxed into a lower pole calyx of the left kidney. 2. Extensive diverticulosis. Reviewed, dictated and finalized at location A. WARE SUPPORT TECHNICIAN IMPRESSION: 1. Nonobstructing bilateral nephrolithiasis. The previously seen stone at the l eft ureteropelvic junction has refluxed into a lower pole calyx of the left kid mayda. 2. Extensive diverticulosis.
== END 2024-05-03 10:29 | disposition home or self-care (01) ==
LOC: MICIMG 10:32
PROVIDERS: PCP Family Medicine; Visit Provider Urology
DX: N20.0 Calculus of kidney (principal); K57.90 Diverticulosis of intestine, part unspecified, without perforation or abscess without bleeding
CPT/HCPCS: 74176

== ENCOUNTER 2024-05-05 07:53 | Outpatient (CLI) | payer OTHER, SELFPAY ==
--- NOTE | ~2024-05-05 | XR_ITS ---
XR abdomen/kub 1V 05/05/2024 08:07 Indication: Left ureteral stone Procedure: KUB Comparison: CT dated 05/03/2024 Findings: Bowel gas pattern nonobstructive. There are right renal stones. There are cholecystectomy c lips. Severe lower thoracic and lumbar spondylosis with scoliosis. Moderate osteoarthritis of the hip s, left greater than right. There are pelvic vascular calcifications. Impression: 1: Right nephrolithiasis. Reviewed, dictated and finalized at location B. NICAL SALES SUPPORT SPECIALIST Impression: 1: Right nephrolithiasis.
== END 2024-05-05 07:54 | disposition home or self-care (01) ==
PROVIDERS: PCP Family Medicine; Visit Provider Urology
DX: N20.0 Calculus of kidney (principal); N20.1 Calculus of ureter
CPT/HCPCS: 74018